=== PATIENT | male | born 2000 | race American Indian/Alaskan Native ===

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

== ENCOUNTER 2018-01-30 16:27 | Emergency (ER) | payer MEDICAID ==
[2018-01-30 17:12] VITALS: BP 127/75; PULSE 76; RESP 16; O2SAT 99
--- NOTE | 2018-01-30 17:31 | ED PDOC ---
Lower Extremity Pain/Injury Time Seen by Provider: 01/30/18 17:26 Chief Complaint (Nursing): Lower Extremity Problem/Injury Chief Complaint (Provider): leg pain History Per: Patient Additional Complaint(s): 17-year-old male presents with pain to left knee that started yesterday. Patient states it feels as if the bone is hurting. He is able to walk but has pain when doing so, no fever or chills. Past Medical History Reviewed: Historical Data, Nursing Documentation, Vital Signs Vital Signs: Last Vital Signs Temp 98.5 F 01/30/18 17:08 Pulse 76 01/30/18 17:08 Resp 16 01/30/18 17:08 BP 127/75 01/30/18 17:08 Pulse Ox 99 01/30/18 17:08 - Medical History PMH: Seizures (On Tegretol) Other PMH: Austism - Family History Family History: States: No Known Family Hx - Living Arrangements Living Arrangements: With Family - Social History Current smoker - smoking cessation education provided: No Alcohol: None Drugs: Denies - Home Medications Home Medications: Ambulatory Orders Medication Instructions Recorded carBAMazepine Susp [TEGretol] 100 mg PO BID 09/23/15 Docusate [Colace] 100 mg PO BID #14 cap 12/03/15 Psyllium Husk [Metamucil] 1 tsp PO DAILY #1 bottle 12/03/15 Polymyxin/Trimethoprim Sulfate 1 drop XX Q6H 10 Days bottle 11/27/17 [Polytrim Ophth Soln] Naproxen [Naprosyn] 500 mg PO BID PRN #10 tab 12/12/17 Ibuprofen [Motrin] 600 mg PO Q6 PRN #15 tab 01/30/18 - Allergies Allergies/Adverse Reactions: Allergies Allergy/AdvReac Type Severity Reaction Status Date / Time peanut Allergy unknown Verified 01/30/18 17:08 Wells Criteria for PE - Wells Criteria for Pulmonary Embolism Clinical Signs and Symptoms of DVT: No P.E is #1 Diagnosis, or Equally Likely: No Heart Rate >100: No Immobilization at least 3 days;Surgery previous 4 weeks: No Previous, objectively diagnosed PE or DVT: No Hemoptysis: No Malignancy w/treatment within 6 months, or palliative: No Total Score: 0 Review of Systems ROS Statement: Except As Marked, All Systems Reviewed And Found Negative Constitutional: Negative for: Fever Musculoskeletal: Positive for: Other (left knee pain) Physical Exam - Reviewed Nursing Documentation Reviewed: Yes Vital Signs Reviewed: Yes - Physical Exam Appears: Positive for: Well, Non-toxic, No Acute Distress Skin: Negative for: Rash Eye Exam: Positive for: Normal appearance Neck: Positive for: Normal Cardiovascular/Chest: Positive for: Regular Rate, Rhythm Respiratory: Positive for: Normal Breath Sounds Extremity: Positive for: Other (Tenderness and swelling medial aspect of left knee with full range of motion) Neurologic/Psych: Positive for: Alert, Oriented, Gait (steady) - ECG O2 Sat by Pulse Oximetry: 99 Pulse Ox Interpretation: Normal - Other Rad Left knee x-ray X-Ray: Interpreted by Me, Viewed By Me X-Ray Interpretation: no fx, no dis Medical Decision Making Medical Decision Makin17 y/o with left knee pain Plan: Pain meds declined X-ray left knee Patient is aware of x-ray results, all questions answered. Prescription given for Motrin. Brace for knee declined. Patient was referred to clinic for follow- up Disposition - Clinical Impression Clinical Impression: Knee pain - Patient ED Disposition Is Patient to be Admitted: No Counseled Patient/Family Regarding: Studies Performed, Diagnosis, Need For Followup, Rx Given - Disposition Referrals: [facility] [Outside] Disposition: Routine/Home Disposition Time: 18:23 Condition: STABLE Additional Instructions: Tick prescription meds as directed as needed for pain. Follow-up with primary doctor or clinic. Prescriptions: Ibuprofen [Motrin] 600 mg PO Q6 PRN #15 tab PRN Reason: Pain, Moderate (4-7) Instructions: Knee Pain (DC) Forms: [employer] (Croatian)
[2018-01-30 18:26] VITALS: TEMP 98.4
--- NOTE | 2018-01-31 08:40 | RAD ---
PROCEDURE: Left Knee Radiographs. HISTORY: Pain. COMPARISON: None. FINDINGS: BONES: No acute fracture. JOINTS: Unremarkable. JOINT EFFUSION: None. OTHER FINDINGS: None. IMPRESSION: No demonstrated fracture or dislocation.
== END 2018-01-30 18:25 | disposition home or self-care (01) ==
LOC: H.ER 16:27
DX: M25.562 Pain in left knee (principal)

== ENCOUNTER 2018-02-18 16:18 | Emergency (ER) | payer MEDICAID ==
[2018-02-18 16:30] VITALS: O2SAT 99
[2018-02-18 17:42] VITALS: BP 110/67; PULSE 87; RESP 17; TEMP 98.6
--- NOTE | 2018-02-18 17:42 | ED PDOC ---
HPI: Skin/Bite Injury Time Seen by Provider: 02/18/18 16:34 Chief Complaint (Nursing): Abnormal Skin Integrity Chief Complaint (Provider): skin boils History Per: Patient History/Exam Limitations: no limitations Onset/Duration Of Symptoms: Gradual Current Symptoms Are (Timing): Still Present Quality Of Symptoms: Painful Additional History Per: Patient, Family (mom) Additional Complaint(s): 17yo male hx seizures on medication, presents w mother c/o several hard lumps to skin- leg, groin and buttock, ongoing now about a week, no fever, no drainage , no prior skin abscesses. Past Medical History Reviewed: Historical Data, Nursing Documentation, Vital Signs Vital Signs: Last Vital Signs Temp 98.6 F 02/18/18 17:41 Pulse 87 02/18/18 17:41 Resp 17 02/18/18 17:41 BP 110/67 02/18/18 17:41 Pulse Ox 99 02/18/18 17:43 - Medical History PMH: Seizures (On Tegretol) - Family History Family History: States: Unknown Family Hx - Living Arrangements Living Arrangements: With Family - Social History Current smoker - smoking cessation education provided: No - Home Medications Home Medications: Ambulatory Orders Medication Instructions Recorded carBAMazepine Susp [TEGretol] 100 mg PO BID 09/23/15 Docusate [Colace] 100 mg PO BID #14 cap 12/03/15 Psyllium Husk [Metamucil] 1 tsp PO DAILY #1 bottle 12/03/15 Polymyxin/Trimethoprim Sulfate 1 drop XX Q6H 10 Days bottle 11/27/17 [Polytrim Ophth Soln] Naproxen [Naprosyn] 500 mg PO BID PRN #10 tab 12/12/17 Ibuprofen [Motrin] 600 mg PO Q6 PRN #15 tab 01/30/18 Chlorhexidine Gluconate 4% 120 ml TOP DAILY #1 bottle 02/18/18 [Hibiclens 4%] Clindamycin [Cleocin] 300 mg PO TID #21 cap 02/18/18 - Allergies Allergies/Adverse Reactions: Allergies Allergy/AdvReac Type Severity Reaction Status Date / Time peanut Allergy unknown Verified 02/18/18 16:26 Review of Systems Constitutional: Negative for: Fever, Chills, Malaise Cardiovascular: Negative for: Chest Pain Respiratory: Negative for: Shortness of Breath Gastrointestinal: Negative for: Abdominal Pain Genitourinary Male: Negative for: Dysuria Musculoskeletal: Negative for: Neck Pain Skin: Positive for: Lesions. Negative for: Rash, Jaundice, Bruising Neurological: Negative for: Confusion, Seizures, Headache Physical Exam - Reviewed Nursing Documentation Reviewed: Yes Vital Signs Reviewed: Yes - Physical Exam Appears: Positive for: Well, Non-toxic Head Exam: Positive for: ATRAUMATIC Skin: Positive for: Normal Color, Warm Eye Exam: Negative for: Periorbital swelling Neck: Positive for: Painless ROM Cardiovascular/Chest: Negative for: Tachycardia Respiratory: Negative for: Respiratory Distress Extremity: Positive for: Other (several nondraining faruncles to groin, buttock and R lower leg. Mild surrounding erythema. Neg vesicles. ) - ECG O2 Sat by Pulse Oximetry: 99 Medical Decision Making Medical Decision Making: initiate clinda and hibiclens soap Areas not mature enough to be incised/ drained. Return ER for any worse pain or swelling to areas, drainage, fever, or any concern. Disposition - Clinical Impression Clinical Impression: Furuncles - Patient ED Disposition Is Patient to be Admitted: No Counseled Patient/Family Regarding: Studies Performed, Diagnosis, Need For Followup, Rx Given - Disposition Referrals: Basil Lewis MD [Family Provider] - Disposition: Routine/Home Disposition Time: 17:30 Condition: STABLE Additional Instructions: Use medications as directed. Return to ER for any fevers, worse pain, draining wounds, or any concern. Use warm compress 3x daily to affected areas. Prescriptions: Chlorhexidine Gluconate 4% [Hibiclens 4%] 120 ml TOP DAILY #1 bottle Clindamycin [Cleocin] 300 mg PO TID #21 cap Instructions: Boil (DC) Forms: [employer] ([place])
== END 2018-02-18 17:40 | disposition home or self-care (01) ==
LOC: H.ER 16:18
DX: L02.92 Furuncle, unspecified (principal)

== ENCOUNTER 2018-04-25 17:05 | Emergency (ER) | payer MEDICAID ==
[2018-04-25 17:24] VITALS: RESP 18; O2SAT 100
[2018-04-25] MEDS ORDERED: Sodium Chloride 0.9% 1,000 ML IV STA (17:40)
--- NOTE | 2018-04-25 17:56 | ED PDOC ---
HPI: Chest Pain Time Seen by Provider: 04/25/18 17:24 Chief Complaint (Nursing): Palpitations Chief Complaint (Provider): Palpitations History Per: Patient History/Exam Limitations: no limitations Onset/Duration Of Symptoms: Days Current Symptoms Are (Timing): Still Present Additional Complaint(s): 17 y/o male with a PMHx of Autism and seizure disorder brought in by mother for evaluation of palpitations. Patient reported to mother at approximately 1 PM today while at rest that he feeling anxious, lightheaded and like his heart was racing. Mother told him to relax and calm down however symptoms persisted thus prompting today's visit. Denies chest pain, dyspnea, syncope and history of similar episodes. PMD: Basil Lewis Past Medical History Reviewed: Historical Data, Nursing Documentation, Vital Signs Vital Signs: Last Vital Signs Temp 98.9 F 04/25/18 17:22 Pulse 87 04/25/18 17:29 Resp 18 04/25/18 17:22 BP 152/82 H 04/25/18 17:22 Pulse Ox 100 04/25/18 18:00 - Medical History PMH: Seizures (On Tegretol) Other PMH: Autism - Surgical History Surgical History: No Surg Hx - Family History Family History: States: Unknown Family Hx - Home Medications Home Medications: Ambulatory Orders Medication Instructions Recorded carBAMazepine Susp [TEGretol] 100 mg PO BID 09/23/15 Docusate [Colace] 100 mg PO BID #14 cap 12/03/15 Psyllium Husk [Metamucil] 1 tsp PO DAILY #1 bottle 12/03/15 Polymyxin/Trimethoprim Sulfate 1 drop XX Q6H 10 Days bottle 11/27/17 [Polytrim Ophth Soln] Naproxen [Naprosyn] 500 mg PO BID PRN #10 tab 12/12/17 Ibuprofen [Motrin] 600 mg PO Q6 PRN #15 tab 01/30/18 Chlorhexidine Gluconate 4% 120 ml TOP DAILY #1 bottle 02/18/18 [Hibiclens 4%] Clindamycin [Cleocin] 300 mg PO TID #21 cap 02/18/18 - Allergies Allergies/Adverse Reactions: Allergies Allergy/AdvReac Type Severity Reaction Status Date / Time peanut Allergy unknown Verified 04/25/18 17:21 Review of Systems ROS Statement: Except As Marked, All Systems Reviewed And Found Negative (as per HPI) Cardiovascular: Positive for: Palpitations. Negative for: Chest Pain Respiratory: Negative for: Other (Dyspnea) Neurological: Positive for: Other (Lightheadedness) Psych: Positive for: Anxiety Physical Exam - Reviewed Nursing Documentation Reviewed: Yes Vital Signs Reviewed: Yes - Physical Exam Appears: Positive for: Non-toxic, No Acute Distress Head Exam: Positive for: ATRAUMATIC, NORMOCEPHALIC Skin: Positive for: Warm, Dry Eye Exam: Positive for: EOMI, PERRL ENT: Negative for: Pharyngeal Erythema, Tonsillar Exudate Neck: Positive for: Painless ROM, Supple Cardiovascular/Chest: Positive for: Regular Rate, Rhythm, Chest Non Tender. Negative for: Murmur Respiratory: Positive for: Normal Breath Sounds Gastrointestinal/Abdominal: Positive for: Soft. Negative for: Tenderness Back: Positive for: Normal Inspection. Negative for: Decreased ROM Extremity: Positive for: Normal ROM. Negative for: Deformity Lymphatic: Negative for: Adenopathy Neurologic/Psych: Positive for: Alert, Mood/Affect (mildly anxious affect). Negative for: Motor/Sensory Deficits - Laboratory Results Result Diagrams: 04/25/18 17:58 04/25/18 17:58 - ECG ECG: Positive for: Interpreted By Fl ECG Rhythm: Positive for: Normal QRS, Normal ST Segment, Sinus Rhythm (70) O2 Sat by Pulse Oximetry: 100 (RA) Pulse Ox Interpretation: Normal - Radiology X-Ray: Interpreted by Fl X-Ray Interpretation: No Acute Disease Medical Decision Making Medical Decision Making: Time: 174 Impression: palpitations Differentials include but not limited to electrolyte abnormality, dehydration, drug intoxication and anxiety Plan: -- EKG -- CMP -- Urine Drug Screen -- Magnesium -- Phosphorus -- Thyroid Stimulating Hormone -- ED Urine Dipstick -- CBC with differentials -- Sodium Chloride IV 1000 mls/hr -- Decker Operator -- IV Insertion Labs unremarkable Pt continues to be asymptomatic in ER. Scribe Attestation: Documented by Edi Mccormack acting as a scribe for Priti Ramírez MD. Provider Scribe Attestation: All medical record entries made by the Scribe were at my direction and personally dictated by me. I have reviewed the chart and agree that the record accurately reflects my personal performance of the history, physical exam, medical decision making, and the department course for this patient. I have also personally directed, reviewed, and agree with the discharge instructions and disposition. Disposition - Clinical Impression Clinical Impression: Palpitations Counseled Patient/Family Regarding: Studies Performed, Diagnosis, Need For Followup - Disposition Referrals: Fito Francois MD [Staff Provider] - Disposition: Routine/Home Disposition Time: 19:30 Condition: STABLE Instructions: Palpitations (DC)
[2018-04-25 18:15] LABS: BASO % 0.3 % (0.0-2.0); EOS # 0.4 K/uL (0.0-0.7); EOS % 8.5 % (0.0-4.0); LYMPH # 2.2 K/uL (1.0-4.3); LYMPH % 47.1 % (20.0-40.0); MEAN CELL VOLUME 95.9 fl (80.0-94.0); MEAN CORPUSCULAR HEMOGLOBIN 33.1 pg (27.0-31.0); MEAN CORPUSCULAR HGB CONC 34.5 g/dL (33.0-37.0); MEAN PLATELET VOLUME 10.9 fl (7.2-11.7); MONO # 0.5 K/uL (0.0-0.8); MONO % 10.9 % (0.0-10.0); NEUT # 1.5 K/uL (1.8-7.0); NEUT % 33.2 % (50.0-75.0); NRBC % 0.2 % (0.0-0.0); RBC 4.83 Mil/uL (4.40-5.90); RED CELL DISTRIBUTION WIDTH 14.2 % (11.5-14.5); WHITE BLOOD COUNT 4.6 K/uL (4.8-10.8)
[2018-04-25 18:22] LABS: ALB/GLOB RATIO 1.4 (1.0-2.1); ALBUMIN 4.6 g/dL (3.5-5.0); ALT/SGPT 33 U/L (21-72); AST/SGOT 26 U/L (17-59); BLOOD UREA NITROGEN 11 mg/dl (9-20); CALCIUM 9.4 mg/dL (8.4-10.2); GFR NON-AFRICAN AMERICAN > 60
[2018-04-25 18:35] LABS: BARBITURATES, UR NEGATIVE (NEGATIVE); BENZODIAZEPINES, UR NEGATIVE (NEGATIVE); OPIATES, UR NEGATIVE (NEGATIVE); PHENCYCLIDINE, UR NEGATIVE (NEGATIVE)
[2018-04-25 19:36] VITALS: BP 126/68; PULSE 75; TEMP 97.7
--- NOTE | 2018-04-26 09:49 | RAD ---
Date of service: 04/25/2018 HISTORY: chest pain COMPARISON: 05/06/2017 TECHNIQUE: Chest PA and lateral FINDINGS: LUNGS: No active pulmonary disease. PLEURA: No significant pleural effusion identified. No pneumothorax apparent. CARDIOVASCULAR: Normal. OSSEOUS STRUCTURES: No significant abnormalities. VISUALIZED UPPER ABDOMEN: Normal. OTHER FINDINGS: None. IMPRESSION: No active disease.
--- NOTE | 2018-04-26 10:00 | CARD ---
APPROVED REPORT Date of service: 04/25/2018 EKG Measurement Heart [id number] <Conclusion> Normal sinus rhythm Normal ECG
== END 2018-04-25 19:50 | disposition home or self-care (01) ==
LOC: H.ER 17:05
DX: R00.2 Palpitations (principal); F84.0 Autistic disorder; G40.909 Epilepsy, unspecified, not intractable, without status epilepticus
CPT/HCPCS: 71046; 80053; 80324; 80345; 80346; 80349; 80353; 80358; 80361; 83735; 83992; 84100; 84443; 85025; 93005; 96360; 99284; J7030

== ENCOUNTER 2018-04-26 19:39 | Emergency (ER) | payer MEDICAID ==
[2018-04-26 20:05] VITALS: BP 129/77; PULSE 80; RESP 16; TEMP 99.3; O2SAT 100
--- NOTE | 2018-04-26 20:57 | ED PDOC ---
Lower Extremity Pain/Injury Time Seen by Provider: 04/26/18 20:05 Chief Complaint (Nursing): Lower Extremity Problem/Injury Chief Complaint (Provider): Lower Extremity Problem/Injury History Per: Patient History/Exam Limitations: no limitations Onset/Duration Of Symptoms: Hrs (earlier today) Current Symptoms Are (Timing): Still Present Additional Complaint(s): 17 year old male presents to the ED for evaluation of leg pain. Patient states that earlier today, he fell and hit his left leg on an unknown object. Otherwise , denies numbness, tingling, head injury, and other injury. PMD: Basil Lewis Past Medical History Reviewed: Historical Data, Nursing Documentation, Vital Signs Vital Signs: Last Vital Signs Temp 99.3 F 04/26/18 20:01 Pulse 80 04/26/18 20:01 Resp 16 04/26/18 20:01 BP 129/77 04/26/18 20:01 Pulse Ox 100 04/26/18 20:01 - Medical History PMH: Seizures (On Tegretol) - Surgical History Surgical History: No Surg Hx - Family History Family History: States: Unknown Family Hx - Living Arrangements Living Arrangements: With Family - Social History Current smoker - smoking cessation education provided: No Alcohol: None Drugs: Denies - Home Medications Home Medications: Ambulatory Orders Medication Instructions Recorded carBAMazepine Susp [TEGretol] 100 mg PO BID 09/23/15 Docusate [Colace] 100 mg PO BID #14 cap 12/03/15 Psyllium Husk [Metamucil] 1 tsp PO DAILY #1 bottle 12/03/15 Polymyxin/Trimethoprim Sulfate 1 drop XX Q6H 10 Days bottle 11/27/17 [Polytrim Ophth Soln] Naproxen [Naprosyn] 500 mg PO BID PRN #10 tab 12/12/17 Ibuprofen [Motrin] 600 mg PO Q6 PRN #15 tab 01/30/18 Chlorhexidine Gluconate 4% 120 ml TOP DAILY #1 bottle 02/18/18 [Hibiclens 4%] Clindamycin [Cleocin] 300 mg PO TID #21 cap 02/18/18 - Allergies Allergies/Adverse Reactions: Allergies Allergy/AdvReac Type Severity Reaction Status Date / Time peanut Allergy unknown Verified 04/26/18 20:05 Review of Systems ROS Statement: Except As Marked, All Systems Reviewed And Found Negative Musculoskeletal: Positive for: Leg Pain (left) Neurological: Negative for: Numbness (or tingling) Physical Exam - Reviewed Nursing Documentation Reviewed: Yes Vital Signs Reviewed: Yes - Physical Exam Appears: Positive for: No Acute Distress Pulses-Dorsalis Pedis (L): 2+ Pulses-Dorsalis Pedis (R): 2+ Extremity: Positive for: Normal ROM (bilateral legs), Capillary Refill (less than 2 seconds). Negative for: Tenderness (bilat LE and bilat knee), Calf Tenderness (bilateral), Deformity, Swelling (bilat LE), Other (skin changes or ecchymosis in bilat LE) Neurologic/Psych: Positive for: Alert, Oriented (x3), Gait (steady and unassisted) - ECG O2 Sat by Pulse Oximetry: 100 Medical Decision Making Medical Decision Making: Time: 2024 Initial Impression: leg contusion Initial Plan: --No emergent care is required at this time. Patient requested mother be called to inform her of plan. Mother was called and agrees with care. Patient advised to ice 20 minutes on and 20 minutes off. Scribe Attestation: Documented by Dasia De La Paz, acting as a scribe for Angel Mcdaniels PA-C. Provider Scribe Attestation: All medical record entries made by the Scribe were at my direction and personally dictated by me. I have reviewed the chart and agree that the record accurately reflects my personal performance of the history, physical exam, medical decision making, and the department course for this patient. I have also personally directed, reviewed, and agree with the discharge instructions and disposition. Disposition - Clinical Impression Clinical Impression: Contusion of leg - Disposition Referrals: [facility] Service [Outside] Disposition Time: 20:30 Condition: STABLE Additional Instructions: STELLA CRONIN, thank you for letting us take care of you today. Your provider was Priti Ramírez MD and you were treated for LT KNEE PAIN. The emergency medical care you received today was directed at your acute symptoms. If you were prescribed any medication, please fill it and take as directed. It may take several days for your symptoms to resolve. Return to the Emergency Department if your symptoms worsen, do not improve, or if you have any other problems. Please contact your doctor or call one of the physicians/clinics you have been referred to that are listed on the Patient Visit Information form that is included in your discharge packet. Bring any paperwork you were given at discharge with you along with any medications you are taking to your follow up visit. Our treatment cannot replace ongoing medical care by a primary care provider outside of the emergency department. Thank you for allowing the [facility] team to be part of your care today. If you had an X-Ray or CT scan: A Radiologist will review the ED reading if any change in treatment is needed we will contact you. If you had a blood, urine, or wound culture: It will take several days for the results, if any change in treatment is needed we will contact you. If you had an STI test: It will take 48 hours for the results. Please call after 1 week if you have not heard back. Instructions: Contusion (DC) Forms: [employer] (Czech) Print Language: JORDANIAN
== END 2018-04-26 21:13 | disposition home or self-care (01) ==
LOC: H.ER 19:39
DX: S80.12XA Contusion of left lower leg, initial encounter (principal); W19.XXXA Unspecified fall, initial encounter; Y92.89 Other specified places as the place of occurrence of the external cause

== ENCOUNTER 2018-07-13 16:55 | Emergency (ER) | payer MEDICAID ==
[2018-07-13 17:24] VITALS: TEMP 98.2; O2SAT 100
--- NOTE | 2018-07-13 18:49 | RAD ---
Date of service: 07/13/2018 PROCEDURE: Left Knee Radiographs. HISTORY: Pain. COMPARISON: None. FINDINGS: BONES: Bone alignment and mineralization are normal. There is no acute displaced fracture or bone destruction. JOINTS: Normal. No osteoarthritis. JOINT EFFUSION: None. OTHER FINDINGS: None. IMPRESSION: No acute fracture or dislocation.
--- NOTE | 2018-07-13 19:01 | ED PDOC ---
Lower Extremity Pain/Injury Time Seen by Provider: 07/13/18 17:44 Chief Complaint (Nursing): Lower Extremity Problem/Injury Chief Complaint (Provider): Lower Extremity Problem/Injury History Per: Patient History/Exam Limitations: no limitations Onset/Duration Of Symptoms: Days (x2 days ) Current Symptoms Are (Timing): Still Present Additional Complaint(s): Ac Duenas is a 18 year old male with a past medical history of seizure disorder and autism, who presents to the emergency department complaining of left knee pain, onset x2 days ago. He states that he began having medial left knee pain and noticed it while walking; pain is described as intermittent that is worsened when walking or jumping. Patient states he has not taken any medications to alleviate pain. He denies any hip, ankle pain, fever, chills, trauma to the area, asthma, HTN, or diabetes. PMD: Basil Lewis Past Medical History Reviewed: Historical Data, Nursing Documentation, Vital Signs Vital Signs: Last Vital Signs Temp 98.2 F 07/13/18 17:20 Pulse 80 07/13/18 17:20 Resp 16 07/13/18 17:20 BP 123/82 07/13/18 17:20 Pulse Ox 100 07/13/18 17:20 - Medical History PMH: Seizures (On Tegretol) Other PMH: autism - Surgical History Surgical History: No Surg Hx - Family History Family History: States: Unknown Family Hx - Home Medications Home Medications: Ambulatory Orders Medication Instructions Recorded carBAMazepine Susp [TEGretol] 100 mg PO BID 09/23/15 Ibuprofen [Motrin Tab] 600 mg PO Q6 PRN 5 Days tab 07/13/18 - Allergies Allergies/Adverse Reactions: Allergies Allergy/AdvReac Type Severity Reaction Status Date / Time peanut Allergy unknown Verified 07/13/18 17:20 Review of Systems ROS Statement: Except As Marked, All Systems Reviewed And Found Negative Musculoskeletal: Positive for: Leg Pain (knee pain). Negative for: Other (hip or ankle pain) Physical Exam - Reviewed Nursing Documentation Reviewed: Yes Vital Signs Reviewed: Yes - Physical Exam Appears: Positive for: No Acute Distress Head Exam: Positive for: ATRAUMATIC, NORMOCEPHALIC Cardiovascular/Chest: Positive for: Regular Rate, Rhythm. Negative for: Murmur Respiratory: Positive for: Normal Breath Sounds. Negative for: Respiratory Distress Extremity: Positive for: Normal ROM (normal flexion and extension of left hip and ankle), Tenderness (mild pain on palpation on medial left knee), Other (Left knee: no edema, erthyema noted ) Neurologic/Psych: Positive for: Other (sensation intact bilaterlly of lower extremities ) - ECG O2 Sat by Pulse Oximetry: 100 (RA) Pulse Ox Interpretation: Normal Medical Decision Making Medical Decision Making: Initial Time: 18:14 Plan: --Left knee x-ray --Ibuprofen 600 mg PO x1 Time: 18:43 X-ray FINDINGS: BONES: Bone alignment and mineralization are normal. There is no acute displaced fracture or bone destruction. JOINTS: Normal. No osteoarthritis. JOINT EFFUSION: None. OTHER FINDINGS: None. IMPRESSION: No acute fracture or dislocation. Scribe Attestation: Documented by Colton Lu, acting as a scribe for Angeles Parker PA-C. Provider Scribe Attestation: All medical record entries made by the Scribe were at my direction and personally dictated by me. I have reviewed the chart and agree that the record accurately reflects my personal performance of the history, physical exam, medical decision making, and the department course for this patient. I have also personally directed, reviewed, and agree with the discharge instructions and disposition. Disposition - Clinical Impression Clinical Impression: Knee pain - Disposition Referrals: Basil Lewis MD [Family Provider] - Disposition Time: 18:50 Condition: STABLE Additional Instructions: Use Ibuprofen for knee pain. Return to ER or f/u with your primary care doctor if pain worsens or you develop a fever. Prescriptions: Ibuprofen [Motrin Tab] 600 mg PO Q6 PRN 5 Days tab PRN Reason: Pain, Moderate (4-7) Instructions: Knee Pain (DC) Forms: [employer] (Macedonian) Print Language: SCOTTISH
[2018-07-13 19:23] VITALS: BP 124/78; PULSE 76; RESP 18
== END 2018-07-13 19:53 | disposition home or self-care (01) ==
LOC: H.ER 16:55
DX: M25.562 Pain in left knee (principal)

== ENCOUNTER 2018-07-25 15:34 | Emergency (ER) | payer MEDICAID ==
[2018-07-25 15:44] VITALS: O2SAT 100
[2018-07-25 17:31] LABS: BLOOD UREA NITROGEN 9 mg/dl (9-20); CALCIUM 9.2 mg/dL (8.4-10.2); GFR NON-AFRICAN AMERICAN > 60
[2018-07-25 17:32] LABS: BASO % 0.6 % (0.0-2.0); EOS # 0.6 K/uL (0.0-0.7); HEMOGLOBIN 15.7 g/dL (12.0-18.0); LYMPH % 35.2 % (20.0-40.0); MEAN CELL VOLUME 97.2 fl (80.0-94.0); MEAN CORPUSCULAR HEMOGLOBIN 32.7 pg (27.0-31.0); MEAN CORPUSCULAR HGB CONC 33.6 g/dL (33.0-37.0); MEAN PLATELET VOLUME 11.4 fl (7.2-11.7); MONO # 0.7 K/uL (0.0-0.8); NEUT # 2.4 K/uL (1.8-7.0); NEUT % 41.2 % (50.0-75.0); NRBC % 0.2 % (0.0-0.0); RBC 4.8 Mil/uL (4.40-5.90); RED CELL DISTRIBUTION WIDTH 13.9 % (11.5-14.5); WHITE BLOOD COUNT 5.8 K/uL (4.8-10.8)
--- NOTE | 2018-07-25 18:06 | ED PDOC ---
HPI: Chest Pain Time Seen by Provider: 07/25/18 16:14 Chief Complaint (Nursing): Anxiety Chief Complaint (Provider): Anxiety History Per: Patient, Family (Mother) History/Exam Limitations: no limitations Additional Complaint(s): 18 years old male with learning disabilities and pmhx of seizures presents to ER with mother for evaluation of chest pain. Patient thinks he has a disease and dying now. Mother reports patient reads a lot of medical information online, which is why he has frequent visits to the ER. Patient thinks he needs a CT of abdomen. He denies any fever, shortness of breath, cough, nausea, vomiting, diarrhea or abdominal pain. PMD: Basil Lewis Past Medical History Reviewed: Historical Data, Nursing Documentation, Vital Signs Vital Signs: Last Vital Signs Temp 98.7 F 07/25/18 15:43 Pulse 82 07/25/18 15:43 Resp 18 07/25/18 15:43 BP 126/76 07/25/18 15:43 Pulse Ox 100 07/25/18 15:43 - Medical History PMH: Seizures (On Tegretol) Denies: Chronic Kidney Disease - Surgical History Surgical History: No Surg Hx - Family History Family History: States: Unknown Family Hx - Social History Current smoker - smoking cessation education provided: No Alcohol: None Drugs: Denies - Home Medications Home Medications: Ambulatory Orders Medication Instructions Recorded carBAMazepine Susp [TEGretol] 100 mg PO BID 09/23/15 RX: Ibuprofen [Motrin Tab] 600 mg PO Q6 PRN 5 Days tab 07/13/18 Benzonatate [Tessalon Perles] 1 tab PO TID #30 sgl 07/17/18 - Allergies Allergies/Adverse Reactions: Allergies Allergy/AdvReac Type Severity Reaction Status Date / Time peanut Allergy unknown Verified 07/17/18 16:33 Review of Systems ROS Statement: Except As Marked, All Systems Reviewed And Found Negative Constitutional: Negative for: Fever Cardiovascular: Positive for: Chest Pain Gastrointestinal: Negative for: Nausea, Vomiting, Abdominal Pain, Diarrhea Physical Exam - Reviewed Nursing Documentation Reviewed: Yes Vital Signs Reviewed: Yes - Physical Exam Appears: Positive for: Non-toxic, No Acute Distress (calm and cooperative) Head Exam: Positive for: ATRAUMATIC, NORMOCEPHALIC Skin: Positive for: Rash (eczematous on left neck and hands bilaterally) Cardiovascular/Chest: Positive for: Regular Rate, Rhythm. Negative for: Murmur Respiratory: Positive for: Normal Breath Sounds. Negative for: Wheezing Gastrointestinal/Abdominal: Positive for: Normal Exam, Soft. Negative for: Tenderness Extremity: Positive for: Normal ROM. Negative for: Pedal Edema (or pain), Calf Tenderness Neurologic/Psych: Positive for: Alert, Oriented (x3) - Laboratory Results Result Diagrams: 07/25/18 17:08 07/25/18 17:08 - ECG O2 Sat by Pulse Oximetry: 100 (RA) Pulse Ox Interpretation: Normal Medical Decision Making Medical Decision Making: Time: 1629 A/P: General workup for chest pain. --Had lengthy discussion with patient and mother of the indication of CT --Everyone in agreement that CT is not necessary at this time --Will obtain chest x-ray --Labs --Reassessment 182 Labs and CXR unremarkable. Pt now asymptomatic. Pt to follow up with his PMD as needed. Return parameters discussed. Scribe Attestation: Documented by Merry Lamas, acting as a scribe for Elise Hollingsworth MD. Provider Scribe Attestation: All medical record entries made by the Scribe were at my direction and personally dictated by me. I have reviewed the chart and agree that the record accurately reflects my personal performance of the history, physical exam, medical decision making, and the department course for this patient. I have also personally directed, reviewed, and agree with the discharge instructions and disposition. Disposition - Clinical Impression Clinical Impression: Anxiety, Non-cardiac chest pain - Disposition Disposition: Routine/Home Disposition Time: 18:20 Condition: IMPROVED Additional Instructions: Follow up with primary medical doctor. Instructions: Chest Pain That Is Not Caused by the Heart (DC), Anxiety, Adult (DC) Forms: [employer] (Hungarian) Print Language: THAI
[2018-07-25 19:08] VITALS: BP 126/67; PULSE 81; RESP 16; TEMP 98.4
--- NOTE | 2018-07-26 10:42 | RAD ---
Date of service: 07/25/2018 HISTORY: Chest pain COMPARISON: 04/25/2018 TECHNIQUE: Chest PA and lateral FINDINGS: LUNGS: No active pulmonary disease. PLEURA: No significant pleural effusion identified. No pneumothorax apparent. CARDIOVASCULAR: No aortic atherosclerotic calcification present. Normal cardiac size. No pulmonary vascular congestion. OSSEOUS STRUCTURES: No significant abnormalities. VISUALIZED UPPER ABDOMEN: Normal. OTHER FINDINGS: None. IMPRESSION: No active disease. No significant interval change compared to the prior examination(s).
== END 2018-07-25 19:00 | disposition home or self-care (01) ==
LOC: H.ER 15:34
DX: R07.89 Other chest pain (principal); F41.9 Anxiety disorder, unspecified; G40.909 Epilepsy, unspecified, not intractable, without status epilepticus

== ENCOUNTER 2018-12-21 15:19 | Inpatient (IN) | payer MEDICAID ==
[2018-12-21] MEDS ORDERED: Piperacillin/Tazobact 3.375 GM in Sodium Chloride 0.9% 100 ML IVPB STA (16:01)
--- NOTE | 2018-12-21 16:18 | ED PDOC ---
HPI: Skin/Bite Injury Time Seen by Provider: 12/21/18 15:35 Chief Complaint (Nursing): Abnormal Skin Integrity Chief Complaint (Provider): infectin LEFT forearm/elbow History Per: Patient, Family History/Exam Limitations: clinical condition (cognitive delay, timing of illness may be unreliable) Onset/Duration Of Symptoms: Days (2) Current Symptoms Are (Timing): Still Present Quality Of Symptoms: Painful, Swollen, Draining Additional Complaint(s): swelling to forearm for 2 days (mother reports could have been longer and patient may have been hiding it) painful and worsening associated with discharge from elbow crease today, constant and slow denies fever, trauma, skin lesion (but has eczema), numbness or tingling, or shoulder/hand pain PMD Dr Francois Past Medical History Reviewed: Historical Data, Nursing Documentation, Vital Signs Vital Signs: Last Vital Signs Temp 97.6 F 12/21/18 15:29 Pulse 95 H 12/21/18 15:29 Resp 16 12/21/18 15:29 BP 139/78 12/21/18 15:29 Pulse Ox 100 12/21/18 15:29 Primary Care Provider: Basil Lewis - Medical History PMH: Seizures (On Tegretol) Denies: Chronic Kidney Disease Other PMH: cognitive delay - Family History Family History: States: Unknown Family Hx - Social History Current smoker - smoking cessation education provided: No Drugs: Denies - Home Medications Home Medications: Ambulatory Orders Medication Instructions Recorded Carbamazepine 100 mg PO DAILY 12/21/18 Docusate [Colace] 100 mg PO DAILY 12/21/18 Loratadine [Claritin] 10 mg PO DAILY 12/21/18 - Allergies Allergies/Adverse Reactions: Allergies Allergy/AdvReac Type Severity Reaction Status Date / Time peanut Allergy unknown Verified 12/21/18 15:28 Review of Systems ROS Statement: Except As Marked, All Systems Reviewed And Found Negative (and as per HPI) Musculoskeletal: Positive for: Arm Pain Skin: Positive for: Lesions Physical Exam - Reviewed Nursing Documentation Reviewed: Yes Vital Signs Reviewed: Yes - Physical Exam Appears: Positive for: In Acute Distress (painful) Skin: Positive for: Warm, Dry (eczematous rashes to arms andlegs) Eye Exam: Positive for: EOMI, PERRL ENT: Positive for: Pharynx Is (clear) Neck: Positive for: Painless ROM, Supple Cardiovascular/Chest: Positive for: Regular Rate, Rhythm. Negative for: Murmur Respiratory: Positive for: Normal Breath Sounds. Negative for: Respiratory Distress Gastrointestinal/Abdominal: Positive for: Soft. Negative for: Tenderness Back: Positive for: Normal Inspection. Negative for: Decreased ROM Extremity: Positive for: Other (RIGHT upper extremity: large 6cm fluctuant swelling to anterior proximal forearm ~3cm distal to elbow crease tender and erythematous, pinpoint lesion in medial elbow crease with yellow thick discharge, also tender. Scaly erythema to bilateral elbows and forearms c/w ecze ma) Lymphatic: Negative for: Axilla Node Tenderness Neurological/Psych: Positive for: Awake, Alert. Negative for: Motor/Sensory Deficits - Laboratory Results Result Diagrams: 12/22/18 10:30 12/21/18 16:12 - ECG O2 Sat by Pulse Oximetry: 100 - Physician Consult Information Physician Contacted: Martell Cox Outcome Of Conversation: Requests MRI of elbow. Agrees with plan for admission for IV antibiotics Medical Decision Making Medical Decision Makin Case discussed with Dr. Herrera, who accepts patient for admission MRI Right upper extremity ordered Disposition - Clinical Impression Clinical Impression: Cellulitis and abscess of upper arm and forearm Counseled Patient/Family Regarding: Studies Performed, Diagnosis - Disposition Disposition Time: 16:00 Condition: SERIOUS - Pt Status Changed To: Hospital Disposition Of: Inpatient - Admit Certification Admit to Inpatient:: After my assessment, the patient will require hospitalization for at least two midnights. This is because of the severity of symptoms shown, intensity of services needed, and/or the medical risk in this patient being treated as an outpatient. - POA Present On Arrival: None
[2018-12-21 16:38] LABS: BLOOD UREA NITROGEN 13 mg/dl (9-20); CALCIUM 9.3 mg/dL (8.4-10.2); GFR NON-AFRICAN AMERICAN > 60
[2018-12-21] MEDS ORDERED: Piperacillin/Tazobact 3.375 gm Inj IVPB ONE (16:46)
--- NOTE | 2018-12-21 16:49 | RAD ---
Date of service: 12/21/2018 PROCEDURE: Radiographs of the right elbow. HISTORY: RIGHT elbow infection COMPARISON: No prior. TECHNIQUE: 3 views obtained. FINDINGS: BONES: Normal. No fracture. JOINTS: Normal. No osteoarthritis. SOFT TISSUES: Soft tissue swelling at the level of the elbow joint and extending into the proximal forearm. The finding is marked on the study for review. JOINT EFFUSION: None. OTHER FINDINGS: None. IMPRESSION: Soft tissue swelling without acute articular or osseous abnormality.
[2018-12-21 17:07] LABS: BASO % 0.3 % (0.0-2.0); EOS # 0.3 K/uL (0.0-0.7); EOS % 2.2 % (0.0-4.0); HEMOGLOBIN 13.6 g/dL (12.0-18.0); LYMPH # 2.5 K/uL (1.0-4.3); LYMPH % 15.7 % (20.0-40.0); MEAN CELL VOLUME 95.8 fl (80.0-94.0); MEAN CORPUSCULAR HEMOGLOBIN 31.6 pg (27.0-31.0); MEAN PLATELET VOLUME 10.7 fl (7.2-11.7); MONO # 1.7 K/uL (0.0-0.8); NEUT # 11.1 K/uL (1.8-7.0); NEUT % 70.8 % (50.0-75.0); RBC 4.31 Mil/uL (4.40-5.90); RED CELL DISTRIBUTION WIDTH 13.5 % (11.5-14.5); WHITE BLOOD COUNT 15.7 K/uL (4.8-10.8)
[2018-12-21 17:09] LABS: ALB/GLOB RATIO 1.1 (1.0-2.1); ALBUMIN 4.7 g/dL (3.5-5.0); ALT/SGPT 13 U/L (21-72); AST/SGOT 32 U/L (17-59)
--- NOTE | 2018-12-21 19:00 | CP.PCM.CON ---
History of Present Illness - History of Present Illness History of Present Illness: Orthopedic hand consult: Dr. Cox Patient is a 18 y/o RHD male c/o forearm pain for the last 3 days. Mother at bedside. Patient reports falling while playing in a park. He does not recall any wounds or foreign body penetration to the forearm at the time of injury. Over the next few days, he developed severe forearm pain and swelling. Yesterday, he noticed white discharge from the area of swelling. The pain was severe, dull and intermittent, but controlled at this time. He denies any fevers/radiation of pain/numbness/tingling. He also denies CP/SOB/N/V/D/dysuria/melena. PMH: Seizures, eczema PSH: denies meds: Tegretol allergy: seasonal SH: denies tobacco/ETOH/drug use Review of Systems - Review of Systems All systems: reviewed and no additional remarkable complaints except Review of Systems: as per HPI Past Patient History - Past Medical History & Family History Past Family History: Reviewed and not pertinent - Past Social History Drugs: Denies - CARDIAC Hx Cardiac Disorders: No - PULMONARY Hx Respiratory Disorders: No - NEUROLOGICAL Hx Seizures: Yes (On Tegretol) - HEENT Hx HEENT Problems: No - RENAL Hx Chronic Kidney Disease: No - ENDOCRINE/METABOLIC Hx Endocrine Disorders: No - HEMATOLOGICAL/ONCOLOGICAL Hx Blood Disorders: No - INTEGUMENTARY Hx Dermatological Problems: No Hx Eczema: Yes - MUSCULOSKELETAL/RHEUMATOLOGICAL Hx Musculoskeletal Disorders: No - GASTROINTESTINAL Hx Gastrointestinal Disorders: No - GENITOURINARY/GYNECOLOGICAL Hx Genitourinary Disorders: No - PSYCHIATRIC Hx Psychophysiologic Disorder: No Hx Substance Use: No - SURGICAL HISTORY Hx Surgeries: No - ANESTHESIA Hx Anesthesia: No Hx Anesthesia Reactions: No Hx Malignant Hyperthermia: No Meds Allergies/Adverse Reactions: Allergies Allergy/AdvReac Type Severity Reaction Status Date / Time peanut Allergy unknown Verified 12/21/18 15:28 Physical Exam - Constitutional Appears: Well, Younger Than Stated Age - Head Exam Head Exam: ATRAUMATIC, NORMOCEPHALIC - Eye Exam Eye Exam: EOMI, Normal appearance - ENT Exam ENT Exam: Mucous Membranes Moist - Respiratory Exam Respiratory Exam: NORMAL BREATHING PATTERN - Extremities Exam Additional comments: RUE: large fluctuant mass at the antecubital elbow extending to proximal forearm small punctate lesion with white discharge moderate eugene-mass tenderness sensation intact MN/UN/RN motor intact MN/UN/RN radial pulse intact Results - Vital Signs Recent Vital Signs: Last Vital Signs Temp 97.6 F 12/21/18 15:29 Pulse 95 H 12/21/18 15:29 Resp 16 12/21/18 15:29 BP 139/78 12/21/18 15:29 Pulse Ox 100 12/21/18 16:44 - Labs Result Diagrams: 12/21/18 16:42 12/21/18 16:12 Labs: Laboratory Results - last 24 hr 12/21/18 12/21/18 12/21/18 16:12 16:12 16:42 WBC 15.7 H D RBC 4.31 L Hgb 13.6 D Hct 41.3 MCV 95.8 H MCH 31.6 H MCHC 33.0 RDW 13.5 Plt Count 235 MPV 10.7 Neut % (Auto) 70.8 Lymph % (Auto) 15.7 L Castro % (Auto) 11.0 H Eos % (Auto) 2.2 Baso % (Auto) 0.3 Neut # (Auto) 11.1 H Lymph # (Auto) 2.5 Castro # (Auto) 1.7 H Eos # (Auto) 0.3 Baso # (Auto) 0.0 Sodium 139 Potassium 3.9 Chloride 100 Carbon Dioxide 23 Anion Gap 20 BUN 13 Creatinine 0.7 L Est GFR ( Amer) > 60 Est GFR (Non-Af Amer) > 60 Random Glucose 95 Lactic Acid 2.9 H Calcium 9.3 Total Bilirubin 0.8 AST 32 ALT 13 L D Alkaline Phosphatase 70 Total Protein 8.9 H Albumin 4.7 Globulin 4.2 H Albumin/Globulin Ratio 1.1 - Impressions Impression: Accession No. : [id number] Patient Name / ID : MEHRDAD DOUGLAS / [id number] Exam Date : 12/21/2018 16:06:28 ( Approved ) Study Comment : Sex / Age : M / 18 Creator : Justice Masterson MD Dictator : Justice Masterson MD [employer] Basic : [employer] Teacher : Justice Masterson MD Approver2 : Report Date : 12/21/2018 16:46:35 My Comment : Date of service: 12/21/2018 PROCEDURE: Radiographs of the right elbow. HISTORY: RIGHT elbow infection COMPARISON: No prior. TECHNIQUE: 3 views obtained. FINDINGS: BONES: Normal. No fracture. JOINTS: Normal. No osteoarthritis. SOFT TISSUES: Soft tissue swelling at the level of the elbow joint and extending into the proximal forearm. The finding is marked on the study for review. JOINT EFFUSION: None. OTHER FINDINGS: None. IMPRESSION: Soft tissue swelling without acute articular or osseous abnormality. Assessment & Plan (1) Abscess of forearm, right Assessment and Plan: Reviewed patient's history, exam and imaging with Dr. Cox who recommends R forearm I&D for AM ID consult for IV abx warm compress BID MRI results to follow pain control will follow Status: Acute - Date & Time Date: 12/21/18 Time: 19:06
[2018-12-21] MEDS ORDERED: Oxycodone/Acetaminophen 5/325 mg Tab PO PRN (19:09)
[2018-12-21] MEDS ORDERED: Vancomycin 1 g Inj ONE (19:44)
[2018-12-21 20:37] LABS: INR 1.1; PROTHROMBIN TIME 12.6 Seconds (9.8-13.1)
[2018-12-21 20:40] LABS: PARTIAL THROMBOPLASTIN TIME 37.8 Seconds (25.6-37.1)
[2018-12-21 21:53] VITALS: BMI 23.9
[2018-12-21] MEDS ORDERED: Dextrose 5%/Lactated Ringer's 1,000 ML IV SCH (22:15)
[2018-12-22] MEDS: Piperacillin/Tazobact 3.375 GM in Sodium Chloride 0.9% 100 ML IVPB SCH ×3 (00:07→17:36)
[2018-12-22] MEDS: carBAMazepine Chew Tab 100 MG Chew Tab PO SCH (08:46)
[2018-12-22 10:47] LABS: BASO % 0.2 % (0.0-2.0); EOS # 0.3 K/uL (0.0-0.7); EOS % 2.6 % (0.0-4.0); HEMOGLOBIN 13.3 g/dL (12.0-18.0); LYMPH # 1.7 K/uL (1.0-4.3); LYMPH % 13.2 % (20.0-40.0); MEAN CELL VOLUME 96.5 fl (80.0-94.0); MEAN CORPUSCULAR HGB CONC 33.2 g/dL (33.0-37.0); MEAN PLATELET VOLUME 10.2 fl (7.2-11.7); MONO # 0.8 K/uL (0.0-0.8); MONO % 6.6 % (0.0-10.0); NEUT % 77.4 % (50.0-75.0); RBC 4.16 Mil/uL (4.40-5.90); RED CELL DISTRIBUTION WIDTH 13.6 % (11.5-14.5); WHITE BLOOD COUNT 12.9 K/uL (4.8-10.8)
--- NOTE | 2018-12-22 14:05 | CP.PCM.PN ---
Subjective - Date & Time of Evaluation Date of Evaluation: 12/22/18 Time of Evaluation: 12:00 - Subjective Subjective: Patient seen and examined at bedside. Grandmother at bedside. Pain is well controlled. No acute events overnight. Denies fevers/CP/SOB. Objective - Vital Signs/Intake and Output Vital Signs (last 24 hours): Temp Pulse Resp BP Pulse Ox 97.4 F L 83 20 114/66 98 12/22/18 08:23 12/22/18 08:23 12/22/18 08:23 12/22/18 08:23 12/22/18 08:23 - Medications Medications: Current Medications Carbamazepine (Tegretol) 100 mg PO DAILY [facility] Last Admin: 12/22/18 08:46 Dose: 100 mg Docusate Sodium (Colace) 100 mg PO DAILY [facility] Last Admin: 12/22/18 08:46 Dose: 100 mg Piperacillin Sod/Tazobactam (Sod 3.375 gm/ Sodium Chloride) 100 mls @ 100 mls/hr IVPB Q8 [facility]; Protocol Last Admin: 12/22/18 08:46 Dose: 100 mls/hr Vancomycin HCl 1 gm/ Sodium (Chloride) 250 mls @ 166.667 mls/hr IVPB DAILY [facility]; Protocol Last Admin: 12/22/18 10:06 Dose: 166.667 mls/hr Dextrose/Lactated Ringer's (Dextrose 5%/Lactated Ringer's) 1,000 mls @ 80 mls/hr IV .[id number] [facility] Stop: 12/23/18 23:00 Loratadine (Claritin) 10 mg PO DAILY [facility] Last Admin: 12/22/18 08:46 Dose: 10 mg Morphine Sulfate (Morphine) 2 mg IVP Q4 PRN PRN Reason: Pain, severe (8-10) Oxycodone/Acetaminophen (Percocet 5/325 Mg Tab) 1 tab PO Q4 PRN PRN Reason: Pain, moderate (4-7) Stop: 12/24/18 19:10 - Labs Labs: 12/22/18 10:30 12/21/18 16:12 PT 12.6 Seconds (9.8-13.1) 12/21/18 20:13 INR 1.1 12/21/18 20:13 APTT 37.8 Seconds (25.6-37.1) H 12/21/18 20:13 - Extremities Exam Additional comments: RUE: large fluctuant mass at the antecubital elbow extending to proximal forearm, improved since yesterday small punctate lesion with white discharge moderate eugene-mass tenderness sensation intact MN/UN/RN motor intact MN/UN/RN radial pulse intact Assessment and Plan (1) Abscess of forearm, right Assessment & Plan: R forearm I&D tomorrow AM NPO pMN IV abx as per ID warm compress pain control d/w Dr. Cox who agrees with above Status: Acute
--- NOTE | 2018-12-22 14:59 | CP.PCM.CON ---
History of Present Illness - History of Present Illness History of Present Illness: 18 y/o c/o right forearm pain for the last 3 days. Patient reports falling while playing in a park. Over the next few days, he developed severe forearm pain and swelling. Yesterday, he noticed discharge from the area of swelling. He is referreed for ID eval and Rx PMH: Seizures, eczema special needs PSH: denies meds: Tegretol allergy: seasonal SH: denies tobacco/ETOH/drug use Review of Systems - Constitutional Constitutional: As Per HPI - EENT Eyes: absent: As Per HPI, Blind Spots, Blurred Vision, Change in Vision, Decreased Night Vision, Diplopia, Discharge, Dry Eye, Exophthalmos, Floaters, Irritation, Itchy Eyes, Loss of Peripheral Vision, Pain, Photophobia, Requires Corrective Lenses, Sees Flashes, Spots in Vision, Tunnel Vision, Other Visual Disturbances, Loss of Vision, Other Ears: absent: As Per HPI, Decreased Hearing, Ear Discharge, Ear Pain, Tinnitus, Abnormal Hearing, Disequilibrium, Dizziness, Other Nose/Mouth/Throat: absent: As Per HPI, Epistaxis, Nasal Congestion, Nasal Discharge, Nasal Obstruction, Nasal Trauma, Nose Pain, Post Nasal Drip, Sinus Pain, Sinus Pressure, Bleeding Gums, Change in Voice, Dental Pain, Dry Mouth, Dysphagia, Halitosis, Hoarsness, Lip Swelling, Mouth Lesions, Mouth Pain, Odynophagia, Sore Throat, Throat Swelling, Tongue Swelling, Facial Pain, Neck Pain, Neck Mass, Other - Cardiovascular Cardiovascular: absent: As Per HPI, Acrocyanosis, Chest Pain, Chest Pain at Res t, Chest Pain with Activity, Claudication, Diaphoresis, Dyspnea, Dyspnea on Exertion, Edema, Irregular Heart Rhythm, Pain Radiating to Arm/Neck/Jaw, Leg Edema, Leg Ulcers, Lightheadedness, Orthopnea, Palpitations, Paroxysmal Nocturnal Dyspnea, Pedal Edema, Radiating Pain, Rapid Heart Rate, Slow Heart Rate, Syncope, Other - Respiratory Respiratory: absent: As Per HPI, Cough, Dyspnea, Hemoptysis, Dyspnea on Exertion, Wheezing, Snoring, Stridor, Pain on Inspiration, Chest Congestion, Excessive Mucous Production, Change in Mucous Color, Pain with Coughing, Other - Gastrointestinal Gastrointestinal: absent: As Per HPI, Abdominal Pain, Belching, Bloating, Change in Bowel Habits, Change in Stool Character, Coffee Ground Emesis, Constipation, Cramping, Diarrhea, Dyspepsia, Dysphagia, Early Satiety, Excessive Flatus, Fecal Incontinence, Heartburn, Hematemesis, Hematochezia, Loose Stools, Melena, Nausea, Odynophagia, Temesmus, Vomiting, Other - Genitourinary Genitourinary: absent: As Per HPI, Change in Urinary Stream, Difficulty Urinating, Dysuria, Flank Pain, Hematuria, Pyuria, Nocturia, Urinary Incontinence, Urinary Frequency, Urinary Hesitance, Urinary Urgency, Voiding Fr eq/Small Amts, Freq UTI, Hx Renal/Bladder Calculi, Hx /Renal Surgery, Bladder Distension, Other - Musculoskeletal Musculoskeletal: As Per HPI - Integumentary Integumentary: As Per HPI, Skin Pain, Wounds - Neurological Neurological: absent: As Per HPI, Abnormal Gait, Abnormal Hearing, Abnormal Movements, Abnormal Speech, Behavioral Changes, Burning Sensations, Confusion, Convulsions, Disequilibrium, Dizziness, Numbness, Focal Weakness, Frequent Falls, Headaches, Lack of Coordination, Loss of Vision, Memory Loss, Paresthesias, Radicular Pain, Restless Legs, Sensory Deficit, Syncope, Tingling, Tremor, Vertigo, Weakness, Other Visual Disturbances, Other - Psychiatric Psychiatric: absent: As Per HPI, Abnormal Sleep Pattern, Anhedonia, Anxiety, Auditory Hallucinations, Behavioral Changes, Change in Appetite, Change in Libido, Confusion, Depression, Difficulty Concentrating, Hallucinations, Homicidal Ideation, Hopelessness, Irritability, Memory Loss, Mood Swings, Panic Attacks, Paranoia, Suicidal Ideation, Visual Hallucinations, Tactile Hallucinations, Other - Endocrine Endocrine: absent: As Per HPI, Change in Body Appearance, Change in Libido, Cold Intolorance, Deepening of Voice, Excessive Sweating, Fatigue, Flushing, Heat Intolorance, Increase in Ring/Shoe/Hat Size, Palpitations, Polydipsia, Polyphagia, Polyuria, Other - Hematologic/Lymphatic Hematologic: absent: As Per HPI, Easy Bleeding, Easy Bruising, Lymphadenopathy, Other Past Patient History - Past Medical History & Family History Past Medical History?: Yes - Past Social History Smoking Status: Never Smoked - CARDIAC Hx Cardiac Disorders: No - PULMONARY Hx Respiratory Disorders: No - NEUROLOGICAL Hx Seizures: Yes (On Tegretol) - HEENT Hx HEENT Problems: No - RENAL Hx Chronic Kidney Disease: No - ENDOCRINE/METABOLIC Hx Endocrine Disorders: No - HEMATOLOGICAL/ONCOLOGICAL Hx Blood Disorders: No - INTEGUMENTARY Hx Dermatological Problems: Yes Hx Eczema: Yes - MUSCULOSKELETAL/RHEUMATOLOGICAL Hx Musculoskeletal Disorders: No Hx Falls: No - GASTROINTESTINAL Hx Gastrointestinal Disorders: No - GENITOURINARY/GYNECOLOGICAL Hx Genitourinary Disorders: No - PSYCHIATRIC Hx Psychophysiologic Disorder: No Hx Substance Use: No - SURGICAL HISTORY Hx Surgeries: No - ANESTHESIA Hx Anesthesia: No Hx Anesthesia Reactions: No Hx Malignant Hyperthermia: No Meds Allergies/Adverse Reactions: Allergies Allergy/AdvReac Type Severity Reaction Status Date / Time peanut Allergy unknown Verified 12/21/18 15:28 - Medications Medications: Current Medications Carbamazepine (Tegretol) 100 mg PO DAILY [facility] Last Admin: 12/22/18 08:46 Dose: 100 mg Docusate Sodium (Colace) 100 mg PO DAILY [facility] Last Admin: 12/22/18 08:46 Dose: 100 mg Piperacillin Sod/Tazobactam (Sod 3.375 gm/ Sodium Chloride) 100 mls @ 100 mls/hr IVPB Q8 [facility]; Protocol Last Admin: 12/22/18 08:46 Dose: 100 mls/hr Vancomycin HCl 1 gm/ Sodium (Chloride) 250 mls @ 166.667 mls/hr IVPB DAILY [facility]; Protocol Last Admin: 12/22/18 10:06 Dose: 166.667 mls/hr Dextrose/Lactated Ringer's (Dextrose 5%/Lactated Ringer's) 1,000 mls @ 80 mls/hr IV .[id number] [facility] Stop: 12/23/18 23:00 Loratadine (Claritin) 10 mg PO DAILY [facility] Last Admin: 12/22/18 08:46 Dose: 10 mg Morphine Sulfate (Morphine) 2 mg IVP Q4 PRN PRN Reason: Pain, severe (8-10) Oxycodone/Acetaminophen (Percocet 5/325 Mg Tab) 1 tab PO Q4 PRN PRN Reason: Pain, moderate (4-7) Stop: 12/24/18 19:10 Physical Exam - Constitutional Appears: Non-toxic, No Acute Distress, Chronically Ill - Head Exam Head Exam: ATRAUMATIC, NORMAL INSPECTION, NORMOCEPHALIC - Eye Exam Eye Exam: EOMI, Normal appearance, PERRL Pupil Exam: NORMAL ACCOMODATION, PERRL - ENT Exam ENT Exam: Mucous Membranes Moist, Normal Exam - Neck Exam Neck exam: Positive for: Normal Inspection - Respiratory Exam Respiratory Exam: Clear to Auscultation Bilateral, NORMAL BREATHING PATTERN - Cardiovascular Exam Cardiovascular Exam: REGULAR RHYTHM - GI/Abdominal Exam GI & Abdominal Exam: Normal Bowel Sounds, Soft. absent: Tenderness - Rectal Exam Rectal Exam: Deferred - Exam Exam: NORMAL INSPECTION - Extremities Exam Extremities exam: Positive for: normal inspection - Back Exam Back exam: NORMAL INSPECTION - Neurological Exam Neurological exam: Alert, CN II-XII Intact, Normal Gait, Oriented x3, Reflexes Normal - Psychiatric Exam Psychiatric exam: Normal Affect, Normal Mood - Skin Skin Exam: Dry, Erythema, Normal Color, Warm Additional comments: swelling redness and tenderness over right medial antecubital area close to ulnar bone and elbow joint with minimal decrease in extension of right arm Results - Vital Signs Recent Vital Signs: Last Vital Signs Temp 97.4 F L 12/22/18 08:23 Pulse 83 12/22/18 08:23 Resp 20 12/22/18 08:23 BP 114/66 12/22/18 08:23 Pulse Ox 98 12/22/18 08:23 - Labs Result Diagrams: 12/22/18 10:30 12/21/18 16:12 Labs: Laboratory Results - last 24 hr 12/21/18 12/21/18 12/21/18 16:12 16:12 16:42 WBC 15.7 H D RBC 4.31 L Hgb 13.6 D Hct 41.3 MCV 95.8 H MCH 31.6 H MCHC 33.0 RDW 13.5 Plt Count 235 MPV 10.7 Neut % (Auto) 70.8 Lymph % (Auto) 15.7 L Reagan % (Auto) 11.0 H Eos % (Auto) 2.2 Baso % (Auto) 0.3 Neut # (Auto) 11.1 H Lymph # (Auto) 2.5 Reagan # (Auto) 1.7 H Eos # (Auto) 0.3 Baso # (Auto) 0.0 ESR PT INR APTT Sodium 139 Potassium 3.9 Chloride 100 Carbon Dioxide 23 Anion Gap 20 BUN 13 Creatinine 0.7 L Est GFR ( Amer) > 60 Est GFR (Non-Af Amer) > 60 Random Glucose 95 Lactic Acid 2.9 H Calcium 9.3 Total Bilirubin 0.8 AST 32 ALT 13 L D Alkaline Phosphatase 70 Total Protein 8.9 H Albumin 4.7 Globulin 4.2 H Albumin/Globulin Ratio 1.1 Blood Type Blood Type Confirm Antibody Screen BBK History Checked 12/21/18 12/21/18 12/21/18 16:42 20:13 20:13 WBC RBC Hgb Hct MCV MCH MCHC RDW Plt Count MPV Neut % (Auto) Lymph % (Auto) Reagan % (Auto) Eos % (Auto) Baso % (Auto) Neut # (Auto) Lymph # (Auto) Reagan # (Auto) Eos # (Auto) Baso # (Auto) ESR PT 12.6 INR 1.1 APTT 37.8 H Sodium Potassium Chloride Carbon Dioxide Anion Gap BUN Creatinine Est GFR ( Amer) Est GFR (Non-Af Amer) Random Glucose Lactic Acid Calcium Total Bilirubin AST ALT Alkaline Phosphatase Total Protein Albumin Globulin Albumin/Globulin Ratio Blood Type O POSITIVE Blood Type Confirm O POSITIVE Antibody Screen Negative BBK History Checked No verified bt 12/22/18 10:30 WBC 12.9 H RBC 4.16 L Hgb 13.3 Hct 40.1 MCV 96.5 H MCH 32.0 H MCHC 33.2 RDW 13.6 Plt Count 221 MPV 10.2 Neut % (Auto) 77.4 H Lymph % (Auto) 13.2 L Reagan % (Auto) 6.6 Eos % (Auto) 2.6 Baso % (Auto) 0.2 Neut # (Auto) 10.0 H Lymph # (Auto) 1.7 Reagan # (Auto) 0.8 Eos # (Auto) 0.3 Baso # (Auto) 0.0 ESR 48 H PT INR APTT Sodium Potassium Chloride Carbon Dioxide Anion Gap BUN Creatinine Est GFR ( Amer) Est GFR (Non-Af Amer) Random Glucose Lactic Acid Calcium Total Bilirubin AST ALT Alkaline Phosphatase Total Protein Albumin Globulin Albumin/Globulin Ratio Blood Type Blood Type Confirm Antibody Screen BBK History Checked Assessment & Plan (1) Abscess of forearm, right Status: Acute - Assessment and Plan (Free Text) Assessment: severe cellulitis with abscess right arm close to elbow joint For OR and drainage in AM Likely staph infection consider MRI right arm if not done Monitor levels creat await cultures cont IV Vanco/ Zosyn
--- NOTE | 2018-12-22 17:07 | MRI ---
MRI right forearm/elbow History: Abscess. Comparison: None available. Technique: Multi-echo multiplanar sequences were performed through the right forearm and elbow without the use of intravenous contrast. Findings: Marked reticulation and edema consistent with cellulitis seen throughout the subcutaneous soft tissues of the right forearm and elbow most prominent anteriorly and medially. Within the anteromedial subcutaneous soft tissues, there is a large heterogeneous collection measuring 3.3 x 1.5 x 4.8 centimeters. There is a contiguous collection measuring 1.7 x 0.9 x 1.7 centimeters. This demonstrates primarily decreased T1 signal and heterogeneously increased STIR signal. This may represent an underlying abscess versus hematoma versus soft tissue lesion versus additional etiology. Clinical correlation. Signal abnormality within the posterior medial bony olecranon demonstrating patchy decreased T1 signal and increased STIR signal suggestive for a possible developing early acute osteomyelitis. Clinical correlation. Contiguous signal abnormality seen within the underlying musculature of the forearm including the brachioradialis muscle at its anteromedial aspect as well as the pronator teres and flexor carpi radialis as well as the brachialis muscles. This may represent an underlying myositis versus partial tearing and or sprain versus additional etiology. There is a lobulated ovoid lesion seen within the medial deep soft tissues at the level of the distal humerus measuring 1.3 x 1.2 x 1.9 centimeters. This is of uncertain clinical etiology and may represent a prominent lymph node versus soft tissue lesion versus additional etiology. Clinical correlation. Biceps and brachialis tendon insertions are preserved. Triceps tendon insertion is preserved. Mild insertional tendinopathy of the common extensor tendon. Common flexor tendon insertion is preserved. Mild increased signal seen within the proximal attachment of the ulnar collateral ligament suggestive for a low grade sprain. Radial collateral and lateral ulnar collateral ligaments are preserved. Impression: 1. Marked reticulation and edema consistent with cellulitis seen throughout the subcutaneous soft tissues of the right forearm and elbow most prominent anteriorly and medially. Within the anteromedial subcutaneous soft tissues, there is a large heterogeneous collection measuring 3.3 x 1.5 x 4.8 centimeters. There is a contiguous collection measuring 1.7 x 0.9 x 1.7 centimeters. This demonstrates primarily decreased T1 signal and heterogeneously increased STIR signal. This may represent an underlying abscess versus hematoma versus soft tissue lesion versus additional etiology. Clinical correlation. 2. Signal abnormality within the posterior medial bony olecranon demonstrating patchy decreased T1 signal and increased STIR signal suggestive for a possible developing early acute osteomyelitis. Clinical correlation. 3. Contiguous signal abnormality seen within the underlying musculature of the forearm including the brachioradialis muscle at its anteromedial aspect as well as the pronator teres and flexor carpi radialis as well as the brachialis muscles. This may represent an underlying myositis versus partial tearing and or sprain versus additional etiology. 4. There is a lobulated ovoid lesion seen within the medial deep soft tissues at the level of the distal humerus measuring 1.3 x 1.2 x 1.9 centimeters. This is best seen on series 4, image 30. This is of uncertain clinical etiology and may represent a prominent lymph node versus soft tissue lesion versus additional etiology. Clinical correlation. 5. Mild insertional tendinopathy of the common extensor tendon. 6. Mild increased signal seen within the proximal attachment of the ulnar collateral ligament suggestive for a low grade sprain.
[2018-12-22] MEDS: Dextrose 5%/Lactated Ringer's 1,000 ML IV SCH (23:00)
[2018-12-23] MEDS: Piperacillin/Tazobact 3.375 GM in Sodium Chloride 0.9% 100 ML IVPB SCH ×3 (01:55→16:17)
[2018-12-23 04:09] LABS: BASO % 0.3 % (0.0-2.0); BLOOD UREA NITROGEN 12 mg/dl (9-20); CALCIUM 9.1 mg/dL (8.4-10.2); EOS # 0.6 K/uL (0.0-0.7); EOS % 5.2 % (0.0-4.0); GFR NON-AFRICAN AMERICAN > 60; HEMOGLOBIN 13.1 g/dL (12.0-18.0); LYMPH # 3.3 K/uL (1.0-4.3); LYMPH % 28.6 % (20.0-40.0); MEAN CELL VOLUME 95.6 fl (80.0-94.0); MEAN CORPUSCULAR HGB CONC 33.5 g/dL (33.0-37.0); MEAN PLATELET VOLUME 10.6 fl (7.2-11.7); MONO # 0.9 K/uL (0.0-0.8); MONO % 8.1 % (0.0-10.0); NEUT # 6.7 K/uL (1.8-7.0); NEUT % 57.8 % (50.0-75.0); NRBC % 0.1 % (0.0-0.0); RBC 4.1 Mil/uL (4.40-5.90); RED CELL DISTRIBUTION WIDTH 13.1 % (11.5-14.5); WHITE BLOOD COUNT 11.5 K/uL (4.8-10.8)
[2018-12-23] MEDS ORDERED: Propofol 10 mg/ml Inj (20 ML) ONE ×2 (07:24→09:39)
[2018-12-23] MEDS ORDERED: Rocuronium 10 mg/ml (5 ml) ONE (07:24)
[2018-12-23] MEDS ORDERED: Succinylcholine Chloride 20 mg/ml Syr (5 ml) IV ONE (07:24)
[2018-12-23] MEDS ORDERED: Lidocaine 1% Inj (20ml) ONE (07:59)
--- NOTE | 2018-12-23 08:17 | PCM.SURG1 ---
Surgeon's Initial Post Op Note - Surgeon's Notes Surgeon: kelli Drop Hammer Pile Driver Operator: yocasta Type of Anesthesia: General LMA Pre-Operative Diagnosis: r forearm abscess Operative Findings: see dictation Post-Operative Diagnosis: same Operation Performed: InD forearm Specimen/Specimens Removed: abscess Estimated Blood Loss: EBL {In ML}: 10 Date of Surgery/Procedure: 12/23/18 Time of Surgery/Procedure: 09:00
[2018-12-23] MEDS: carBAMazepine Chew Tab 100 MG Chew Tab PO SCH ×2 (08:31→12:02)
[2018-12-23] MEDS ORDERED: Midazolam 2 MG/2 ML VIAL ONE (08:35)
[2018-12-23] MEDS ORDERED: Neostigmine 1:1000 (1 mg/ml) Inj ONE (09:27)
[2018-12-23] MEDS ORDERED: HYDROmorphone 0.5 mg/0.5 ml ISec IVP PRN (10:07)
--- NOTE | 2018-12-23 10:11 | PCM.ANESB4 ---
Infraclavicular Block - Femoral Nerve Block Date of Procedure: 12/23/18 Anesthesiologist: Lin Pre-Procedure Diagnosis: Right elbow cellulitis/abscess Post-Procedure Diagnosis: Same Procedure Performed: Brachial Plexus at the Infraclavicular area Right - Procedure Infraclavicular Block: The procedure was explained to the patient and legal guardian that it is for the post-operative pain management. Consent was obtained from mother after a thorough discussion with the patient regarding the benefits and possible complications of local anesthetic block of the brachial plexus at the infraclavicular area. The patient was brought to the operating room and standard monitors were applied. Time-out was held with the circulating nurse to confirm the correct surgery and the appropriate block. Under general anesthesia, patient's head was gently rotated away from the operative __right shoulder and the area medial to the coracoid process and inferior to the clavicle was carefully palpated. The ultrasound transducer was then applied to the skin in the transverse plane and the brachial plexus was visualized surrounding the axillary artery and deep to the pectoralis major and minor muscles. After thorough identification, this area was prepped with Chloraprep. At this point, a #21 gauge Stimuplex 4-inch needle was inserted cephalad to the ultrasound transducer and inferior to the clavicle in-plane towards the posterior aspect of the axillary artery. Needle advancement was performed carefully under ultrasound visualization. Nerve stimulator was used and twitch of the affected extremity including fingers, hand, wrist and elbow was obtained at minimum current of __0.5___MA. After repeated negative aspiration, __2___cc of __0.25___% __bupivacaine with 1:200,000 was injected and this was followed with __28____ cc of ___0.25____ % ____bupivacaine with 1:200,000 . Under ultrasound guidance the local anesthetics were observed surrounding the cords of the brachial plexus. The needle was removed intact and sterile dressing was applied. The patient had stable vital signs following the block. The patient tolerated the infraclavicular block of the brachial plexus well with stable vital signs was prepared for emergence.
[2018-12-23] MEDS ORDERED: Lactated Ringer's 1,000 ML IV SCH (10:15)
[2018-12-23] MEDS: Dextrose 5%/Lactated Ringer's 1,000 ML IV SCH (12:03)
--- NOTE | 2018-12-23 14:50 | OP ---
PROCEDURE DATE: 12/23/2018 PREOPERATIVE DIAGNOSIS: Right elbow and proximal forearm abscess. POSTOPERATIVE DIAGNOSIS: Right elbow and proximal forearm abscess. PROCEDURES: 1. Right elbow abscess removal and debridement. 2. Right proximal forearm fasciotomy. SURGEON: Martell Cox MD LOADING MACHINE TOOL SETTER: Vikash Faust RPA TYPE OF ANESTHESIA: General and postoperative block. ESTIMATED BLOOD LOSS: Minimal. COMPLICATIONS: None. SPECIMEN: Cultures. DESCRIPTION OF PROCEDURE: The patient was brought to the operating room and placed supine on the operating room table. After general anesthesia was given, a tourniquet was placed on the right upper extremity, then the right extremity was prepped and draped in standard surgical fashion and time-out was performed. An anterior curvilinear incision over the antecubital fossa was outlined. The arm was elevated and exsanguinated. The tourniquet was inflated to 250 mmHg. Incision was made through the skin only. All superficial veins were cauterized. The abscess was encountered deep to the skin. The abscess was then removed with irrigation, curettes and pulse lavage. The wound was copiously irrigated with bacitracin pulse lavage. Non-viable tissue was removed with rongeur and curettes. Next, the proximal fascia of the forearm was incised. The pronator teres and brachioradialis muscles were identified. There were no signs of infection at the muscle belly or deep to it. The incision was carried out proximally medially. The medial neurovascular bundles were also identified. Fascia over the neuromuscular bundle was incised. There were no pockets of pus deep to the bundle. All pockets of collection were freed with the freer and irrigated. Prior to irrigation, 2 culture specimens were sent. Tourniquet was then deflated and hemostasis was obtained. A SANDEEP drain was inserted and the wound was closed with 4-0 nylon interrupted sutures. Sterile dressings were applied with 4 x 4, Alejandro and Xeroform. The patient tolerated the procedure well. He will receive postoperative right upper extremity nerve block and will continue to be monitored and continued on treatment on IV antibiotics. Martell Cox MD
--- NOTE | 2018-12-23 15:33 | CP.PCM.PN ---
Subjective - Date & Time of Evaluation Date of Evaluation: 12/23/18 Time of Evaluation: 08:30 - Subjective Subjective: patient away for procedure at time of evaluation chart reviewed discussed with housestaff follow up after procedure rest of plan as ordered Objective - Vital Signs/Intake and Output Vital Signs (last 24 hours): Temp Pulse Resp BP Pulse Ox 97.9 F 74 20 117/70 100 12/23/18 13:48 12/23/18 13:48 12/23/18 13:48 12/23/18 13:48 12/23/18 13:48 Intake and Output: 12/23/18 12/23/18 06:59 18:59 Intake Total 1200 Balance 1200 - Medications Medications: Current Medications Acetaminophen (Tylenol 325mg Tab) 650 mg PO Q4 PRN PRN Reason: Fever 101 degrees fahrenheit Carbamazepine (Tegretol) 100 mg PO DAILY [facility] Last Admin: 12/23/18 12:02 Dose: 100 mg Docusate Sodium (Colace) 100 mg PO DAILY [facility] Last Admin: 12/23/18 12:02 Dose: 100 mg Piperacillin Sod/Tazobactam (Sod 3.375 gm/ Sodium Chloride) 100 mls @ 100 mls/hr IVPB Q8 [facility]; Protocol Last Admin: 12/23/18 09:05 Dose: 100 mls Dextrose/Lactated Ringer's (Dextrose 5%/Lactated Ringer's) 1,000 mls @ 80 m ls/hr IV .[id number] [facility] Stop: 12/23/18 23:00 Last Admin: 12/23/18 12:03 Dose: Not Given Vancomycin HCl 1 gm/ Sodium (Chloride) 250 mls @ 125 mls/hr IVPB Q12H [facility]; Protocol Last Admin: 12/23/18 03:30 Dose: 125 mls/hr Loratadine (Claritin) 10 mg PO DAILY [facility] Last Admin: 12/23/18 12:02 Dose: 10 mg Morphine Sulfate (Morphine) 2 mg IVP Q4 PRN PRN Reason: Pain, severe (8-10) Ondansetron HCl (Zofran Inj) 4 mg IVP Q4 PRN PRN Reason: Nausea/Vomiting Oxycodone/Acetaminophen (Percocet 5/325 Mg Tab) 1 tab PO Q4 PRN PRN Reason: Pain, moderate (4-7) Stop: 12/24/18 19:10 - Labs Labs: 12/23/18 03:25 12/23/18 03:25 PT 12.6 Seconds (9.8-13.1) 12/21/18 20:13 INR 1.1 12/21/18 20:13 APTT 37.8 Seconds (25.6-37.1) H 12/21/18 20:13 Assessment and Plan (1) Abscess of forearm, right Status: Acute
--- NOTE | 2018-12-23 17:08 | CP.PCM.PN ---
Subjective - Date & Time of Evaluation Date of Evaluation: 12/23/18 Time of Evaluation: 09:00 - Subjective Subjective: wound growing MSSA drain in place s/p I and D Objective - Vital Signs/Intake and Output Vital Signs (last 24 hours): Temp Pulse Resp BP Pulse Ox 98.3 F 85 20 123/62 100 12/23/18 16:03 12/23/18 16:03 12/23/18 16:03 12/23/18 16:03 12/23/18 16:03 Intake and Output: 12/23/18 12/23/18 06:59 18:59 Intake Total 1200 Balance 1200 - Medications Medications: Current Medications Acetaminophen (Tylenol 325mg Tab) 650 mg PO Q4 PRN PRN Reason: Fever 101 degrees fahrenheit Carbamazepine (Tegretol) 100 mg PO DAILY [facility] Last Admin: 12/23/18 12:02 Dose: 100 mg Docusate Sodium (Colace) 100 mg PO DAILY [facility] Last Admin: 12/23/18 12:02 Dose: 100 mg Piperacillin Sod/Tazobactam (Sod 3.375 gm/ Sodium Chloride) 100 mls @ 100 mls/hr IVPB Q8 [facility]; Protocol Last Admin: 12/23/18 16:17 Dose: 100 mls/hr Dextrose/Lactated Ringer's (Dextrose 5%/Lactated Ringer's) 1,000 mls @ 80 mls/hr IV .[id number] [facility] Stop: 12/23/18 23:00 Last Admin: 12/23/18 12:03 Dose: Not Given Vancomycin HCl 1 gm/ Sodium (Chloride) 250 mls @ 125 mls/hr IVPB Q12H [facility]; Protocol Last Admin: 12/23/18 16:18 Dose: 125 mls/hr Loratadine (Claritin) 10 mg PO DAILY [facility] Last Admin: 12/23/18 12:02 Dose: 10 mg Morphine Sulfate (Morphine) 2 mg IVP Q4 PRN PRN Reason: Pain, severe (8-10) Ondansetron HCl (Zofran Inj) 4 mg IVP Q4 PRN PRN Reason: Nausea/Vomiting Oxycodone/Acetaminophen (Percocet 5/325 Mg Tab) 1 tab PO Q4 PRN PRN Reason: Pain, moderate (4-7) Stop: 12/24/18 19:10 - Labs Labs: 05/02/19 03:25 12/23/18 03:25 PT 12.6 Seconds (9.8-13.1) 12/21/18 20:13 INR 1.1 12/21/18 20:13 APTT 37.8 Seconds (25.6-37.1) H 12/21/18 20:13 - Constitutional Appears: Non-toxic, Chronically Ill - Head Exam Head Exam: ATRAUMATIC, NORMAL INSPECTION, NORMOCEPHALIC - Eye Exam Eye Exam: EOMI, Normal appearance, PERRL Pupil Exam: NORMAL ACCOMODATION, PERRL - ENT Exam ENT Exam: Mucous Membranes Moist, Normal Exam - Neck Exam Neck Exam: Full ROM, Normal Inspection. absent: Lymphadenopathy - Respiratory Exam Respiratory Exam: Clear to Ausculation Bilateral, NORMAL BREATHING PATTERN - Cardiovascular Exam Cardiovascular Exam: REGULAR RHYTHM, +S1, +S2. absent: Murmur - GI/Abdominal Exam GI & Abdominal Exam: Soft, Normal Bowel Sounds. absent: Tenderness - Rectal Exam Rectal Exam: Deferred - Extremities Exam Extremities Exam: Full ROM, Joint Swelling, Normal Capillary Refill, Tenderness. absent: Calf Tenderness, Normal Inspection, Pedal Edema - Back Exam Back Exam: NORMAL INSPECTION - Neurological Exam Neurological Exam: Alert, Awake, CN II-XII Intact, Normal Gait, Oriented x3 - Psychiatric Exam Psychiatric exam: Normal Affect, Normal Mood - Skin Skin Exam: Dry, Intact, Normal Color, Warm Assessment and Plan (1) Abscess of forearm, right Status: Acute - Assessment and Plan (Free Text) Assessment: possible early acute ulnar OM by MRI cont IV rx for min 21 days
--- NOTE | 2018-12-24 00:08 | CP.PCM.HP ---
History of Present Illness - History of Present Illness History of Present Illness: CC: Right arm swelling with a draining lesion. HPI: 18 year old male with a PMH of seizures and cognitive delay presented to the ED with right arm swelling, pinpoint lesion, and purulent discharge from the site. As per the pt, he fell outside while playing and scraped the antecubital area of this right arm. As per the patient's mother, he has been hiding the injury for several days. At present, the pt is on IV antibiotics and is for I&D tomorrow. PMH: Seizures, cognitive delay. PSH: None. Allergies: Peanut. Subjective Review of Systems: Reviewed and no additional remarkable complaints except pain to the right elbow crease. Objective Appears: Anxious, Non-toxic, No Acute Distress. Head Exam: NORMAL INSPECTION, normocephalic. Eye Exam: Normal eye inspection, EOMI, PERRLA. Respiratory Exam: NORMAL BREATHING PATTERN, breath sounds clear bilaterally. Cardiovascular Exam: +S1, +S2. RRR. GI & Abdominal Exam: Soft, non-tender, non-distended. Neurological Exam: Alert, Awake, Oriented x3. Psychiatric exam: Normal mood. Calm and cooperative. Skin Exam: Right arm swelling with a small lesion in the antecubital area, yellow-white discharge noted. Assessment/Impression/Plan: 1.) Cellulitis/Right upper arm abscess -On Vanco and Zosyn. -Infectious disease and orthopedic consults input appreciated. -Wound care and dressing changes regularly. -For I&D tomorrow. -Continue current treatment. Present on Admission - Present on Admission Any Indicators Present on Admission: No Past Patient History - Past Medical History & Family History Past Medical History?: Yes - Past Social History Drugs: Denies - CARDIAC Hx Cardiac Disorders: No - PULMONARY Hx Respiratory Disorders: No - NEUROLOGICAL Hx Seizures: Yes (On Tegretol) - HEENT Hx HEENT Problems: No - RENAL Hx Chronic Kidney Disease: No - ENDOCRINE/METABOLIC Hx Endocrine Disorders: No - HEMATOLOGICAL/ONCOLOGICAL Hx Blood Disorders: No - INTEGUMENTARY Hx Dermatological Problems: Yes Hx Eczema: Yes - MUSCULOSKELETAL/RHEUMATOLOGICAL Hx Musculoskeletal Disorders: No Hx Falls: No - GASTROINTESTINAL Hx Gastrointestinal Disorders: No - GENITOURINARY/GYNECOLOGICAL Hx Genitourinary Disorders: No - PSYCHIATRIC Hx Psychophysiologic Disorder: No Hx Substance Use: No - SURGICAL HISTORY Hx Surgeries: No - ANESTHESIA Hx Anesthesia: No Hx Anesthesia Reactions: No Hx Malignant Hyperthermia: No Meds Allergies/Adverse Reactions: Allergies Allergy/AdvReac Type Severity Reaction Status Date / Time peanut Allergy unknown Verified 12/21/18 15:28 Results - Vital Signs Recent Vital Signs: Last Vital Signs Temp 98.2 F 12/23/18 23:38 Pulse 65 12/23/18 23:38 Resp 20 12/23/18 23:38 BP 107/62 12/23/18 23:38 Pulse Ox 100 12/23/18 23:38 - Labs Result Diagrams: 12/23/18 03:25 12/23/18 03:25 Labs: Laboratory Results - last 24 hr 12/23/18 12/23/18 12/23/18 03:25 03:25 03:25 WBC 11.5 H RBC 4.10 L Hgb 13.1 Hct 39.2 MCV 95.6 H MCH 32.0 H MCHC 33.5 RDW 13.1 Plt Count 231 MPV 10.6 Neut % (Auto) 57.8 Lymph % (Auto) 28.6 Phillips % (Auto) 8.1 Eos % (Auto) 5.2 H Baso % (Auto) 0.3 Neut # (Auto) 6.7 Lymph # (Auto) 3.3 Phillips # (Auto) 0.9 H Eos # (Auto) 0.6 Baso # (Auto) 0.0 Sodium 137 Potassium 3.6 Chloride 102 Carbon Dioxide 24 Anion Gap 15 BUN 12 Creatinine 0.7 L Est GFR ( Amer) > 60 Est GFR (Non-Af Amer) > 60 Random Glucose 96 Calcium 9.1 Vancomycin Trough < 5.0 L Assessment & Plan (1) Abscess of forearm, right Status: Acute (2) Cellulitis and abscess of upper arm and forearm Status: Acute
[2018-12-24] MEDS: Piperacillin/Tazobact 3.375 GM in Sodium Chloride 0.9% 100 ML IVPB SCH ×3 (00:10→16:45)
[2018-12-24 06:26] LABS: MEAN CELL VOLUME 95.6 fl (80.0-94.0); MEAN CORPUSCULAR HEMOGLOBIN 31.3 pg (27.0-31.0); MEAN CORPUSCULAR HGB CONC 32.8 g/dL (33.0-37.0); RBC 3.82 Mil/uL (4.40-5.90)
[2018-12-24 06:29] LABS: BLOOD UREA NITROGEN 13 mg/dl (9-20); CALCIUM 8.3 mg/dL (8.4-10.2); GFR NON-AFRICAN AMERICAN > 60
[2018-12-24] MEDS: carBAMazepine Chew Tab 100 MG Chew Tab PO SCH (08:57)
--- NOTE | 2018-12-24 13:33 | RAD ---
Date of service: 12/24/2018 PROCEDURE: CHEST RADIOGRAPH, 1 VIEW HISTORY: for PICC line verification COMPARISON: 07/25/2018. FINDINGS: LUNGS: Clear. PLEURA: No pneumothorax or pleural fluid seen. CARDIOVASCULAR: No aortic atherosclerotic calcification present. No radiographic findings to suggest acute or significant cardiovascular disease. OSSEOUS STRUCTURES: No significant abnormalities. VISUALIZED UPPER ABDOMEN: Normal. OTHER FINDINGS: PICC line in satisfactory position catheter inserted via left upper extremity approach. The tip appears to be at the junction of the superior vena cava and the left subclavian vein. IMPRESSION: No active disease. No adverse findings common no pneumothorax following PICC line placement.
--- NOTE | 2018-12-24 13:36 | CP.PCM.PN ---
Subjective - Date & Time of Evaluation Date of Evaluation: 12/24/18 Time of Evaluation: 08:00 - Subjective Subjective: no fever less drainage cultures reviewed IV Rosalinao d/c'd Objective - Vital Signs/Intake and Output Vital Signs (last 24 hours): Temp Pulse Resp BP Pulse Ox 98.4 F 94 H 20 106/60 99 12/24/18 07:54 12/24/18 07:54 12/24/18 07:54 12/24/18 07:54 12/24/18 07:54 - Medications Medications: Current Medications Acetaminophen (Tylenol 325mg Tab) 650 mg PO Q4 PRN PRN Reason: Fever 101 degrees fahrenheit Carbamazepine (Tegretol) 100 mg PO DAILY [facility] Last Admin: 12/24/18 08:57 Dose: 100 mg Docusate Sodium (Colace) 100 mg PO DAILY [facility] Last Admin: 12/24/18 08:57 Dose: 100 mg Piperacillin Sod/Tazobactam (Sod 3.375 gm/ Sodium Chloride) 100 mls @ 100 mls/hr IVPB Q8 [facility]; Protocol Last Admin: 12/24/18 08:56 Dose: 100 mls/hr Vancomycin HCl 1 gm/ Sodium (Chloride) 250 mls @ 125 mls/hr IVPB Q12H [facility]; [facility] Last Admin: 12/24/18 02:17 Dose: 125 mls/hr Loratadine (Claritin) 10 mg PO DAILY [facility] Last Admin: 12/24/18 08:57 Dose: 10 mg Morphine Sulfate (Morphine) 2 mg IVP Q4 PRN PRN Reason: Pain, severe (8-10) Ondansetron HCl (Zofran Inj) 4 mg IVP Q4 PRN PRN Reason: Nausea/Vomiting Oxycodone/Acetaminophen (Percocet 5/325 Mg Tab) 1 tab PO Q4 PRN PRN Reason: Pain, moderate (4-7) Stop: 12/24/18 19:10 - Labs Labs: 12/24/18 05:45 12/24/18 05:45 PT 12.6 Seconds (9.8-13.1) 12/21/18 20:13 INR 1.1 12/21/18 20:13 APTT 37.8 Seconds (25.6-37.1) H 12/21/18 20:13 - Constitutional Appears: Non-toxic, Chronically Ill - Head Exam Head Exam: ATRAUMATIC, NORMAL INSPECTION, NORMOCEPHALIC - Eye Exam Eye Exam: EOMI, Normal appearance, PERRL Pupil Exam: NORMAL ACCOMODATION, PERRL - ENT Exam ENT Exam: Mucous Membranes Moist, Normal Exam - Neck Exam Neck Exam: Full ROM, Normal Inspection. absent: Lymphadenopathy - Respiratory Exam Respiratory Exam: Clear to Ausculation Bilateral, NORMAL BREATHING PATTERN - Cardiovascular Exam Cardiovascular Exam: REGULAR RHYTHM, +S1, +S2. absent: Murmur - GI/Abdominal Exam GI & Abdominal Exam: Distended, Soft. absent: Tenderness - Rectal Exam Rectal Exam: Deferred - Exam Exam: NORMAL INSPECTION - Extremities Exam Extremities Exam: Full ROM, Normal Capillary Refill. absent: Joint Swelling, Normal Inspection, Pedal Edema Additional comments: swelling right arm drain in place - Back Exam Back Exam: NORMAL INSPECTION - Neurological Exam Neurological Exam: Alert, Awake, CN II-XII Intact, Normal Gait, Oriented x3 - Psychiatric Exam Psychiatric exam: Normal Affect, Normal Mood - Skin Skin Exam: Dry, Intact, Normal Color, Warm Assessment and Plan (1) Abscess of forearm, right Status: Acute (2) Acute osteomyelitis Status: Acute - Assessment and Plan (Free Text) Assessment: cont iv rx 3- 6 weeks for MSSA possible OM right elbow as per MRI read follow up imaging and ortho follow up recommended
[2018-12-25] MEDS: Piperacillin/Tazobact 3.375 GM in Sodium Chloride 0.9% 100 ML IVPB SCH ×3 (00:41→16:41)
[2018-12-25] MEDS: carBAMazepine Chew Tab 100 MG Chew Tab PO SCH (08:53)
[2018-12-25] MEDS ORDERED: DiphenhydrAMINE 50 mg/ml Inj IVP STA (18:40)
[2018-12-26] MEDS: Piperacillin/Tazobact 3.375 GM in Sodium Chloride 0.9% 100 ML IVPB SCH ×2 (00:02→10:19)
[2018-12-26] MEDS: carBAMazepine Chew Tab 100 MG Chew Tab PO SCH (10:19)
--- NOTE | 2018-12-26 13:52 | CP.PCM.PN ---
Subjective - Date & Time of Evaluation Date of Evaluation: 12/26/18 Time of Evaluation: 08:00 - Subjective Subjective: c/o rash switch to ancef Objective - Vital Signs/Intake and Output Vital Signs (last 24 hours): Temp Pulse Resp BP Pulse Ox 97.8 F 80 20 147/80 98 12/26/18 08:29 12/26/18 08:29 12/26/18 08:29 12/26/18 08:29 12/26/18 08:29 - Medications Medications: Current Medications Acetaminophen (Tylenol 325mg Tab) 650 mg PO Q4 PRN PRN Reason: Fever 101 degrees fahrenheit Carbamazepine (Tegretol) 100 mg PO DAILY [facility] Last Admin: 12/26/18 10:19 Dose: 100 mg Diphenhydramine HCl (Benadryl) 25 mg IVP Q4 PRN PRN Reason: Allergy symptoms Docusate Sodium (Colace) 100 mg PO DAILY [facility] Last Admin: 12/26/18 10:18 Dose: 100 mg Hydrocortisone (Hydrocortisone 2.5%) 1 applic TOP BID [facility] Last Admin: 12/26/18 13:34 Dose: 1 u Loratadine (Claritin) 10 mg PO DAILY [facility] Last Admin: 12/26/18 10:18 Dose: 10 mg Morphine Sulfate (Morphine) 2 mg IVP Q4 PRN PRN Reason: Pain, severe (8-10) Ondansetron HCl (Zofran Inj) 4 mg IVP Q4 PRN PRN Reason: Nausea/Vomiting - Labs Labs: 12/24/18 05:45 12/24/18 05:45 PT 12.6 Seconds (9.8-13.1) 12/21/18 20:13 INR 1.1 12/21/18 20:13 APTT 37.8 Seconds (25.6-37.1) H 12/21/18 20:13 - Constitutional Appears: Non-toxic, Chronically Ill - Head Exam Head Exam: ATRAUMATIC, NORMAL INSPECTION, NORMOCEPHALIC - Eye Exam Eye Exam: EOMI, Normal appearance, PERRL Pupil Exam: NORMAL ACCOMODATION, PERRL - ENT Exam ENT Exam: Mucous Membranes Moist, Normal Exam - Neck Exam Neck Exam: Full ROM, Normal Inspection. absent: Lymphadenopathy - Respiratory Exam Respiratory Exam: Clear to Ausculation Bilateral, NORMAL BREATHING PATTERN - Cardiovascular Exam Cardiovascular Exam: REGULAR RHYTHM, +S1, +S2. absent: Murmur - GI/Abdominal Exam GI & Abdominal Exam: Soft, Normal Bowel Sounds. absent: Tenderness - Rectal Exam Rectal Exam: Deferred - Exam Exam: NORMAL INSPECTION - Extremities Exam Extremities Exam: Full ROM, Normal Capillary Refill, Normal Inspection. absent: Joint Swelling, Pedal Edema - Back Exam Back Exam: NORMAL INSPECTION - Neurological Exam Neurological Exam: Alert, Awake, CN II-XII Intact, Normal Gait, Oriented x3 - Psychiatric Exam Psychiatric exam: Normal Affect, Normal Mood - Skin Skin Exam: Dry, Intact, Rash Assessment and Plan (1) Abscess of forearm, right Status: Acute (2) Acute osteomyelitis Status: Acute - Assessment and Plan (Free Text) Assessment: IV Ancef for 4-6 weeks
[2018-12-26] MEDS: DiphenhydrAMINE 50 mg/ml Inj IVP PRN (16:31)
[2018-12-26] MEDS: ceFAZolin 2 GM in Sodium Chloride 0.9% 100 ML IVPB SCH (17:48)
--- NOTE | 2018-12-26 19:25 | CP.PCM.PN ---
Subjective - Date & Time of Evaluation Date of Evaluation: 12/24/18 Time of Evaluation: 10:40 - Subjective Subjective: Patient has no fever On IV antibiotics Has no cough. Objective - Vital Signs/Intake and Output Vital Signs (last 24 hours): Temp Pulse Resp BP Pulse Ox 97.3 F L 73 18 133/88 100 12/26/18 16:30 12/26/18 16:30 12/26/18 16:30 12/26/18 16:30 12/26/18 16:30 - Medications Medications: Current Medications Acetaminophen (Tylenol 325mg Tab) 650 mg PO Q4 PRN PRN Reason: Fever 101 degrees fahrenheit Carbamazepine (Tegretol) 100 mg PO DAILY [facility] Last Admin: 12/26/18 10:19 Dose: 100 mg Diphenhydramine HCl (Benadryl) 25 mg IVP Q4 PRN PRN Reason: Allergy symptoms Last Admin: 12/26/18 16:31 Dose: 25 mg Docusate Sodium (Colace) 100 mg PO DAILY [facility] Last Admin: 12/26/18 10:18 Dose: 100 mg Hydrocortisone (Hydrocortisone 2.5%) 1 applic TOP BID [facility] Last Admin: 12/26/18 16:32 Dose: 1 u Cefazolin Sodium 2 gm/ Sodium (Chloride) 100 mls @ 100 mls/hr IVPB Q8 [facility] Last Admin: 12/26/18 17:48 Dose: 100 mls/hr Loratadine (Claritin) 10 mg PO DAILY [facility] Last Admin: 12/26/18 10:18 Dose: 10 mg Morphine Sulfate (Morphine) 2 mg IVP Q4 PRN PRN Reason: Pain, severe (8-10) Ondansetron HCl (Zofran Inj) 4 mg IVP Q4 PRN PRN Reason: Nausea/Vomiting - Labs Labs: 12/24/18 05:45 12/24/18 05:45 PT 12.6 Seconds (9.8-13.1) 12/21/18 20:13 INR 1.1 12/21/18 20:13 APTT 37.8 Seconds (25.6-37.1) H 12/21/18 20:13 - Head Exam Head Exam: NORMAL INSPECTION - Eye Exam Eye Exam: Normal appearance - ENT Exam ENT Exam: Mucous Membranes Moist - Respiratory Exam Respiratory Exam: Clear to Ausculation Bilateral - Cardiovascular Exam Cardiovascular Exam: REGULAR RHYTHM - GI/Abdominal Exam GI & Abdominal Exam: Normal Bowel Sounds - Neurological Exam Neurological Exam: Awake, Oriented x3 Assessment and Plan (1) Cellulitis and abscess of upper arm and forearm Status: Acute (2) Abscess of forearm, right Status: Acute - Assessment and Plan (Free Text) Plan: Cont meds COnt IV antibiotics wound care
--- NOTE | 2018-12-27 00:38 | CP.PCM.PN ---
Subjective - Date & Time of Evaluation Date of Evaluation: 12/25/18 Time of Evaluation: 09:00 - Subjective Subjective: Pt seen and assessed at bedside. No new changes since I&D was done. Remains afebrile and states pain is improving. Subjective Review of Systems: Reviewed and no additional remarkable complaints except intermittent pain to the right elbow crease. Objective Appears: Anxious, Non-toxic, No Acute Distress. Head Exam: NORMAL INSPECTION, normocephalic. Eye Exam: Normal eye inspection, EOMI, PERRLA. Respiratory Exam: NORMAL BREATHING PATTERN, breath sounds clear bilaterally. Cardiovascular Exam: +S1, +S2. RRR. GI & Abdominal Exam: Soft, non-tender, non-distended. Neurological Exam: Alert, Awake, Oriented x3. Psychiatric exam: Normal mood. Calm and cooperative. Skin Exam: Right arm dressing in place. Assessment/Impression/Plan: 1.) Cellulitis/Right upper arm abscess -On Zosyn IVPB. Pt will need halfway antibiotics. -Infectious disease and orthopedic consults input appreciated. -Wound care and dressing changes regularly. -Continue current treatment. -For possible ROSA. Objective - Vital Signs/Intake and Output Vital Signs (last 24 hours): Temp Pulse Resp BP Pulse Ox 97.4 F L 76 18 121/76 100 12/27/18 00:02 12/27/18 00:02 12/27/18 00:02 12/27/18 00:02 12/27/18 00:02 - Medications Medications: Current Medications Acetaminophen (Tylenol 325mg Tab) 650 mg PO Q4 PRN PRN Reason: Fever 101 degrees fahrenheit Carbamazepine (Tegretol) 100 mg PO DAILY [facility] Last Admin: 12/26/18 10:19 Dose: 100 mg Diphenhydramine HCl (Benadryl) 25 mg IVP Q4 PRN PRN Reason: Allergy symptoms Last Admin: 12/26/18 16:31 Dose: 25 mg Docusate Sodium (Colace) 100 mg PO DAILY [facility] Last Admin: 12/26/18 10:18 Dose: 100 mg Hydrocortisone (Hydrocortisone 2.5%) 1 applic TOP BID [facility] Last Admin: 12/26/18 16:32 Dose: 1 u Cefazolin Sodium 2 gm/ Sodium (Chloride) 100 mls @ 100 mls/hr IVPB Q8 [facility] Last Admin: 12/26/18 17:48 Dose: 100 mls/hr Loratadine (Claritin) 10 mg PO DAILY [facility] Last Admin: 12/26/18 10:18 Dose: 10 mg Morphine Sulfate (Morphine) 2 mg IVP Q4 PRN PRN Reason: Pain, severe (8-10) Ondansetron HCl (Zofran Inj) 4 mg IVP Q4 PRN PRN Reason: Nausea/Vomiting - Labs Labs: 12/24/18 05:45 12/24/18 05:45 PT 12.6 Seconds (9.8-13.1) 12/21/18 20:13 INR 1.1 12/21/18 20:13 APTT 37.8 Seconds (25.6-37.1) H 12/21/18 20:13 Assessment and Plan (1) Abscess of forearm, right Status: Acute (2) Cellulitis and abscess of upper arm and forearm Status: Acute
[2018-12-27] MEDS: ceFAZolin 2 GM in Sodium Chloride 0.9% 100 ML IVPB SCH ×3 (00:39→16:55)
--- NOTE | 2018-12-27 00:52 | CP.PCM.PN ---
Subjective - Date & Time of Evaluation Date of Evaluation: 12/26/18 Time of Evaluation: 11:00 - Subjective Subjective: Pt seen and assessed at bedside, had an allergic reaction episode in the evening after eating fish. The pt received benadryl IV and the symptoms subsided. Today on assessment, the pt had another episode of urticaria, predominantly on the anterior neck. Given the timing of the reaction (shortly after receiving Zosyn), it is likely that the pt has a PCN allergy. Subjective Review of Systems: Reviewed and no additional remarkable complaints except intermittent pain to the right elbow crease and hives to the front of the neck. Objective Appears: Anxious, Non-toxic, No Acute Distress. Head Exam: NORMAL INSPECTION, normocephalic. Eye Exam: Normal eye inspection, EOMI, PERRLA. Respiratory Exam: NORMAL BREATHING PATTERN, breath sounds clear bilaterally. Cardiovascular Exam: +S1, +S2. RRR. GI & Abdominal Exam: Soft, non-tender, non-distended. Neurological Exam: Alert, Awake, Oriented x3. Psychiatric exam: Normal mood. Calm and cooperative. Skin Exam: Right arm dressing in place. Urticaria to the anterior neck. Assessment/Impression/Plan: 1.) Allergic Reaction -Pt c/o rash to the neck after eating fish yesterday; received benadryl. -Benadryl 25 mg IV q4h PRN ordered for allergic episodes. -The pt has a h/o eczema and the family believes the recent allergy is either eczema related or due to eating fish. -However, due to the timing of the allergic outbreaks (shortly after receiving Zosyn), must consider potential cross-reactivity/PCN allergy. -Recommend switching IV antibiotics at this time. 2.) Cellulitis/Right upper arm abscess -For possible ROSA at [facility]. -Pt will need terminal gauger antibiotics. -Infectious disease and orthopedic consults input appreciated. -Wound care and dressing changes regularly. -Monitor for s/s infection. -Continue current treatment. Objective - Vital Signs/Intake and Output Vital Signs (last 24 hours): Temp Pulse Resp BP Pulse Ox 97.4 F L 76 18 121/76 100 12/27/18 00:02 12/27/18 00:02 12/27/18 00:02 12/27/18 00:02 12/27/18 00:02 - Medications Medications: Current Medications Acetaminophen (Tylenol 325mg Tab) 650 mg PO Q4 PRN PRN Reason: Fever 101 degrees fahrenheit Carbamazepine (Tegretol) 100 mg PO DAILY [facility] Last Admin: 12/26/18 10:19 Dose: 100 mg Diphenhydramine HCl (Benadryl) 25 mg IVP Q4 PRN PRN Reason: Allergy symptoms Last Admin: 12/26/18 16:31 Dose: 25 mg Docusate Sodium (Colace) 100 mg PO DAILY [facility] Last Admin: 12/26/18 10:18 Dose: 100 mg Hydrocortisone (Hydrocortisone 2.5%) 1 applic TOP BID [facility] Last Admin: 12/26/18 16:32 Dose: 1 u Cefazolin Sodium 2 gm/ Sodium (Chloride) 100 mls @ 100 mls/hr IVPB Q8 [facility] Last Admin: 12/27/18 00:39 Dose: 100 mls/hr Loratadine (Claritin) 10 mg PO DAILY [facility] Last Admin: 12/26/18 10:18 Dose: 10 mg Morphine Sulfate (Morphine) 2 mg IVP Q4 PRN PRN Reason: Pain, severe (8-10) Ondansetron HCl (Zofran Inj) 4 mg IVP Q4 PRN PRN Reason: Nausea/Vomiting - Labs Labs: 12/24/18 05:45 12/24/18 05:45 PT 12.6 Seconds (9.8-13.1) 12/21/18 20:13 INR 1.1 12/21/18 20:13 APTT 37.8 Seconds (25.6-37.1) H 12/21/18 20:13 Assessment and Plan (1) Abscess of forearm, right Status: Acute (2) Cellulitis and abscess of upper arm and forearm Status: Acute (3) Allergic reaction Status: Acute (4) Allergic reaction caused by a drug Status: Acute
--- NOTE | 2018-12-27 08:08 | RAD ---
Date of service: 12/27/2018 HISTORY: PICC line placement COMPARISON: Portable chest 12/24/2018, 12:49 p.m.. TECHNIQUE: 1 view obtained. FINDINGS: LUNGS: No active pulmonary disease. PLEURA: No significant pleural effusion identified, no pneumothorax apparent. CARDIOVASCULAR: No aortic atherosclerotic calcification present. Normal cardiac size. No pulmonary vascular congestion. Stable left upper extremity PICC insertion. OSSEOUS STRUCTURES: No significant abnormalities. VISUALIZED UPPER ABDOMEN: Normal. OTHER FINDINGS: None. IMPRESSION: No interval acute cardiopulmonary disease appreciated.
--- NOTE | 2018-12-27 09:00 | CP.PCM.PN ---
Subjective - Date & Time of Evaluation Date of Evaluation: 12/27/18 Time of Evaluation: 08:00 - Subjective Subjective: Patient seen and examined at bedside comfortable. Pain well controlled. Allergic reaction yesterday, questionable agent, fish vs ancef. Offers no new complaints. Objective - Vital Signs/Intake and Output Vital Signs (last 24 hours): Temp Pulse Resp BP Pulse Ox 97.8 F 72 18 106/54 L 97 12/27/18 08:32 12/27/18 08:32 12/27/18 08:32 12/27/18 08:32 12/27/18 08:32 - Medications Medications: Current Medications Acetaminophen (Tylenol 325mg Tab) 650 mg PO Q4 PRN PRN Reason: Fever 101 degrees fahrenheit Carbamazepine (Tegretol) 100 mg PO DAILY [facility] Last Admin: 12/26/18 10:19 Dose: 100 mg Diphenhydramine HCl (Benadryl) 25 mg IVP Q4 PRN PRN Reason: Allergy symptoms Last Admin: 12/26/18 16:31 Dose: 25 mg Docusate Sodium (Colace) 100 mg PO DAILY [facility] Last Admin: 12/26/18 10:18 Dose: 100 mg Hydrocortisone (Hydrocortisone 2.5%) 1 applic TOP BID [facility] Last Admin: 12/26/18 16:32 Dose: 1 u Cefazolin Sodium 2 gm/ Sodium (Chloride) 100 mls @ 100 mls/hr IVPB Q8 [facility] Last Admin: 12/27/18 00:39 Dose: 100 mls/hr Loratadine (Claritin) 10 mg PO DAILY [facility] Last Admin: 12/26/18 10:18 Dose: 10 mg Morphine Sulfate (Morphine) 2 mg IVP Q4 PRN PRN Reason: Pain, severe (8-10) Ondansetron HCl (Zofran Inj) 4 mg IVP Q4 PRN PRN Reason: Nausea/Vomiting - Labs Labs: 12/24/18 05:45 12/24/18 05:45 PT 12.6 Seconds (9.8-13.1) 12/21/18 20:13 INR 1.1 12/21/18 20:13 APTT 37.8 Seconds (25.6-37.1) H 12/21/18 20:13 - Extremities Exam Additional comments: RUE: Dressings CDI Incsion CDI with nylon sutures antecubital non-tender indurated mass, postop changes sensation and motor intact MN/UN/RN radial pulse intact Assessment and Plan (1) Abscess of forearm, right Assessment & Plan: POD#4 S/P R elbow abscess I&D -abx as per ID -pain controlled -OT ROM as barbara -orthopedically stable for discharge -f/u in office within 7-10 days -d/w Dr. Cox who agrees with above Status: Acute
[2018-12-27] MEDS: carBAMazepine Chew Tab 100 MG Chew Tab PO SCH (10:17)
[2018-12-27 12:35] LABS: BASO % 0.7 % (0.0-2.0); EOS # 0.8 K/uL (0.0-0.7); EOS % 12.4 % (0.0-4.0); HEMOGLOBIN 13.6 g/dL (12.0-18.0); LYMPH # 1.8 K/uL (1.0-4.3); LYMPH % 28.2 % (20.0-40.0); MEAN CELL VOLUME 95.3 fl (80.0-94.0); MEAN CORPUSCULAR HGB CONC 33.6 g/dL (33.0-37.0); MEAN PLATELET VOLUME 9.8 fl (7.2-11.7); MONO # 0.7 K/uL (0.0-0.8); NEUT % 47.7 % (50.0-75.0); NRBC % 0.1 % (0.0-0.0); RBC 4.26 Mil/uL (4.40-5.90); RED CELL DISTRIBUTION WIDTH 13.2 % (11.5-14.5); WHITE BLOOD COUNT 6.3 K/uL (4.8-10.8)
[2018-12-27 12:56] LABS: ALB/GLOB RATIO 1.2 (1.0-2.1); ALBUMIN 4.1 g/dL (3.5-5.0); ALT/SGPT 32 U/L (21-72); AST/SGOT 29 U/L (17-59); BLOOD UREA NITROGEN 13 mg/dl (9-20); CALCIUM 8.8 mg/dL (8.4-10.2); GFR NON-AFRICAN AMERICAN > 60
--- NOTE | 2018-12-27 17:43 | CP.PCM.PN ---
Subjective - Date & Time of Evaluation Date of Evaluation: 12/27/18 Time of Evaluation: 10:00 - Subjective Subjective: patient seen and examined at bedside. Interim events noted No complaints offered at this time denies cp/sob/fever/chills. 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 rest of plan as ordered Objective - Vital Signs/Intake and Output Vital Signs (last 24 hours): Temp Pulse Resp BP Pulse Ox 98.3 F 80 18 130/86 96 12/27/18 16:10 12/27/18 16:10 12/27/18 16:10 12/27/18 16:10 12/27/18 16:10 - Medications Medications: Current Medications Acetaminophen (Tylenol 325mg Tab) 650 mg PO Q4 PRN PRN Reason: Fever 101 degrees fahrenheit Carbamazepine (Tegretol) 100 mg PO DAILY [facility] Last Admin: 12/27/18 10:17 Dose: 100 mg Diphenhydramine HCl (Benadryl) 25 mg IVP Q4 PRN PRN Reason: Allergy symptoms Last Admin: 12/26/18 16:31 Dose: 25 mg Docusate Sodium (Colace) 100 mg PO DAILY [facility] Last Admin: 12/27/18 10:16 Dose: 100 mg Hydrocortisone (Hydrocortisone 2.5%) 1 applic TOP BID [facility] Last Admin: 12/27/18 10:17 Dose: 1 u Cefazolin Sodium 2 gm/ Sodium (Chloride) 100 mls @ 100 mls/hr IVPB Q8 [facility] Last Admin: 12/27/18 16:55 Dose: 100 mls/hr Loratadine (Claritin) 10 mg PO DAILY [facility] Last Admin: 12/27/18 10:16 Dose: 10 mg Morphine Sulfate (Morphine) 2 mg IVP Q4 PRN PRN Reason: Pain, severe (8-10) Ondansetron HCl (Zofran Inj) 4 mg IVP Q4 PRN PRN Reason: Nausea/Vomiting - Labs Labs: 12/27/18 12:30 12/27/18 12:30 PT 12.6 Seconds (9.8-13.1) 12/21/18 20:13 INR 1.1 12/21/18 20:13 APTT 37.8 Seconds (25.6-37.1) H 12/21/18 20:13 Assessment and Plan (1) Abscess of forearm, right Status: Acute
--- NOTE | 2018-12-27 22:34 | CP.PCM.PN ---
Subjective - Date & Time of Evaluation Date of Evaluation: 12/27/18 Time of Evaluation: 09:00 - Subjective Subjective: iv rx in progress 'rash resolved Objective - Vital Signs/Intake and Output Vital Signs (last 24 hours): Temp Pulse Resp BP Pulse Ox 98.3 F 80 18 130/86 96 12/27/18 16:10 12/27/18 16:10 12/27/18 16:10 12/27/18 16:10 12/27/18 16:10 - Medications Medications: Current Medications Acetaminophen (Tylenol 325mg Tab) 650 mg PO Q4 PRN PRN Reason: Fever 101 degrees fahrenheit Carbamazepine (Tegretol) 100 mg PO DAILY [facility] Last Admin: 12/27/18 10:17 Dose: 100 mg Diphenhydramine HCl (Benadryl) 25 mg IVP Q4 PRN PRN Reason: Allergy symptoms Last Admin: 12/26/18 16:31 Dose: 25 mg Docusate Sodium (Colace) 100 mg PO DAILY [facility] Last Admin: 12/27/18 10:16 Dose: 100 mg Hydrocortisone (Hydrocortisone 2.5%) 1 applic TOP BID [facility] Last Admin: 12/27/18 10:17 Dose: 1 u Cefazolin Sodium 2 gm/ Sodium (Chloride) 100 mls @ 100 mls/hr IVPB Q8 [facility] Last Admin: 12/27/18 16:55 Dose: 100 mls/hr Loratadine (Claritin) 10 mg PO DAILY [facility] Last Admin: 12/27/18 10:16 Dose: 10 mg Morphine Sulfate (Morphine) 2 mg IVP Q4 PRN PRN Reason: Pain, severe (8-10) Ondansetron HCl (Zofran Inj) 4 mg IVP Q4 PRN PRN Reason: Nausea/Vomiting - Labs Labs: 12/27/18 12:30 12/27/18 12:30 PT 12.6 Seconds (9.8-13.1) 12/21/18 20:13 INR 1.1 12/21/18 20:13 APTT 37.8 Seconds (25.6-37.1) H 12/21/18 20:13 - Constitutional Appears: No Acute Distress - Head Exam Head Exam: ATRAUMATIC, NORMAL INSPECTION, NORMOCEPHALIC - Eye Exam Eye Exam: EOMI, Normal appearance, PERRL Pupil Exam: NORMAL ACCOMODATION, PERRL - ENT Exam ENT Exam: Mucous Membranes Moist, Normal Exam - Neck Exam Neck Exam: Full ROM, Normal Inspection. absent: Lymphadenopathy - Respiratory Exam Respiratory Exam: Clear to Ausculation Bilateral, NORMAL BREATHING PATTERN - Cardiovascular Exam Cardiovascular Exam: REGULAR RHYTHM, +S1, +S2. absent: Murmur - GI/Abdominal Exam GI & Abdominal Exam: Soft, Normal Bowel Sounds. absent: Tenderness - Rectal Exam Rectal Exam: Deferred - Extremities Exam Extremities Exam: Full ROM, Normal Capillary Refill, Normal Inspection. absent: Joint Swelling, Pedal Edema - Back Exam Back Exam: NORMAL INSPECTION - Neurological Exam Neurological Exam: Alert, Awake, CN II-XII Intact, Normal Gait, Oriented x3 - Psychiatric Exam Psychiatric exam: Normal Affect, Normal Mood - Skin Skin Exam: Dry, Intact, Normal Color, Warm Assessment and Plan (1) Abscess of forearm, right Status: Acute (2) Acute osteomyelitis Status: Acute - Assessment and Plan (Free Text) Assessment: cont IV Ancef for min 3 weeks with Ortho follow up
[2018-12-28] MEDS: ceFAZolin 2 GM in Sodium Chloride 0.9% 100 ML IVPB SCH ×3 (00:16→16:43)
[2018-12-28] MEDS: DiphenhydrAMINE 50 mg/ml Inj IVP PRN (01:19)
[2018-12-28] MEDS: Multivitamin With Minerals Tab PO SCH (08:23)
[2018-12-28] MEDS: carBAMazepine Chew Tab 100 MG Chew Tab PO SCH (08:23)
--- NOTE | 2018-12-28 09:09 | CP.PCM.PN ---
Subjective - Date & Time of Evaluation Date of Evaluation: 12/28/18 Time of Evaluation: 09:07 - Subjective Subjective: Patient sleeping, cooperates with dressing change with prompting. Denies pain in elbow Objective - Vital Signs/Intake and Output Vital Signs (last 24 hours): Temp Pulse Resp BP Pulse Ox 97.8 F 77 20 107/70 98 12/28/18 08:07 12/28/18 08:07 12/28/18 08:07 12/28/18 08:07 12/28/18 08:07 - Medications Medications: Current Medications Acetaminophen (Tylenol 325mg Tab) 650 mg PO Q4 PRN PRN Reason: Fever 101 degrees fahrenheit Carbamazepine (Tegretol) 100 mg PO DAILY [facility] Last Admin: 12/28/18 08:23 Dose: 100 mg Diphenhydramine HCl (Benadryl) 25 mg IVP Q4 PRN PRN Reason: Allergy symptoms Last Admin: 12/28/18 01:19 Dose: 25 mg Docusate Sodium (Colace) 100 mg PO DAILY [facility] Last Admin: 12/28/18 08:24 Dose: 100 mg Hydrocortisone (Hydrocortisone 2.5%) 1 applic TOP BID [facility] Last Admin: 12/28/18 08:24 Dose: 1 u Cefazolin Sodium 2 gm/ Sodium (Chloride) 100 mls @ 100 mls/hr IVPB Q8 [facility] Last Admin: 12/28/18 08:20 Dose: 100 mls/hr Loratadine (Claritin) 10 mg PO DAILY [facility] Last Admin: 12/28/18 08:24 Dose: 10 mg Multivitamins/Minerals (Therapeutic-M Tab) 1 tab PO DAILY [facility] Last Admin: 12/28/18 08:23 Dose: 1 tab Ondansetron HCl (Zofran Inj) 4 mg IVP Q4 PRN PRN Reason: Nausea/Vomiting - Labs Labs: 12/27/18 12:30 12/27/18 12:30 PT 12.6 Seconds (9.8-13.1) 12/21/18 20:13 INR 1.1 12/21/18 20:13 APTT 37.8 Seconds (25.6-37.1) H 12/21/18 20:13 - Extremities Exam Additional comments: dressing changed. Incision intact, dry, no erythema, healing well. Minimal tenderness. Elbow ROM stiff, encouraged. Sensation intact, +ROM fingers/wrist +radial plse Assessment and Plan (1) Abscess of forearm, right Assessment & Plan: POD#5 s/p I&D ortho stable for d/c f/u Dr. Cox 5-7 days upon d/c dressing change daily encourage ROM of elbow flex/ext/pron/sup d/w Dr. Cox, agrees with aboe Status: Acute
[2018-12-29] MEDS: ceFAZolin 2 GM in Sodium Chloride 0.9% 100 ML IVPB SCH ×2 (10:23→16:55)
[2018-12-29] MEDS: carBAMazepine Chew Tab 100 MG Chew Tab PO SCH (10:24)
[2018-12-29] MEDS: Multivitamin With Minerals Tab PO SCH (10:25)
--- NOTE | 2018-12-29 16:20 | CP.PCM.PN ---
Subjective - Date & Time of Evaluation Date of Evaluation: 12/29/18 Time of Evaluation: 15:00 - Subjective Subjective: Patient seen and examined at OOB to chair comfortable. No pain. Offers no new complaints. Awaiting disposition. Objective - Vital Signs/Intake and Output Vital Signs (last 24 hours): Temp Pulse Resp BP Pulse Ox 98.3 F 87 18 103/64 100 12/29/18 15:58 12/29/18 15:58 12/29/18 15:58 12/29/18 15:58 12/29/18 15:58 - Medications Medications: Current Medications Acetaminophen (Tylenol 325mg Tab) 650 mg PO Q4 PRN PRN Reason: Fever 101 degrees fahrenheit Carbamazepine (Tegretol) 100 mg PO DAILY [facility] Last Admin: 12/29/18 10:24 Dose: 100 mg Diphenhydramine HCl (Benadryl) 25 mg IVP Q4 PRN PRN Reason: Allergy symptoms Last Admin: 12/28/18 01:19 Dose: 25 mg Docusate Sodium (Colace) 100 mg PO DAILY [facility] Last Admin: 12/29/18 10:24 Dose: 100 mg Hydrocortisone (Hydrocortisone 2.5%) 1 applic TOP BID [facility] Last Admin: 12/29/18 10:24 Dose: 1 applic Cefazolin Sodium 2 gm/ Sodium (Chloride) 100 mls @ 100 mls/hr IVPB Q8 [facility] Last Admin: 12/29/18 10:23 Dose: 100 mls/hr Loratadine (Claritin) 10 mg PO DAILY [facility] Last Admin: 12/29/18 10:24 Dose: 10 mg Multivitamins/Minerals (Therapeutic-M Tab) 1 tab PO DAILY [facility] Last Admin: 12/29/18 10:25 Dose: 1 tab Ondansetron HCl (Zofran Inj) 4 mg IVP Q4 PRN PRN Reason: Nausea/Vomiting - Labs Labs: 12/27/18 12:30 12/27/18 12:30 PT 12.6 Seconds (9.8-13.1) 12/21/18 20:13 INR 1.1 12/21/18 20:13 APTT 37.8 Seconds (25.6-37.1) H 12/21/18 20:13 - Extremities Exam Additional comments: RUE: Dressings CDI Incsion CDI with nylon sutures antecubital non-tender indurated mass, postop changes sensation and motor intact MN/UN/RN radial pulse intact Assessment and Plan (1) Abscess of forearm, right Assessment & Plan: POD#5 S/P R elbow abscess I&D -awaiting dispo to rehab for oysterman IV abx -abx as per ID -OT ROM as barbara -orthopedically stable for discharge -f/u in office within 7-10 days -d/w Dr. Cox who agrees with above Status: Acute
--- NOTE | 2018-12-29 17:51 | CP.PCM.PN ---
Subjective - Date & Time of Evaluation Date of Evaluation: 12/29/18 Time of Evaluation: 08:00 - Subjective Subjective: doing well afeb nad Objective - Vital Signs/Intake and Output Vital Signs (last 24 hours): Temp Pulse Resp BP Pulse Ox 98.3 F 87 18 103/64 100 12/29/18 15:58 12/29/18 15:58 12/29/18 15:58 12/29/18 15:58 12/29/18 15:58 - Medications Medications: Current Medications Acetaminophen (Tylenol 325mg Tab) 650 mg PO Q4 PRN PRN Reason: Fever 101 degrees fahrenheit Carbamazepine (Tegretol) 100 mg PO DAILY [facility] Last Admin: 12/29/18 10:24 Dose: 100 mg Diphenhydramine HCl (Benadryl) 25 mg IVP Q4 PRN PRN Reason: Allergy symptoms Last Admin: 12/28/18 01:19 Dose: 25 mg Docusate Sodium (Colace) 100 mg PO DAILY [facility] Last Admin: 12/29/18 10:24 Dose: 100 mg Hydrocortisone (Hydrocortisone 2.5%) 1 applic TOP BID [facility] Last Admin: 12/29/18 16:55 Dose: Not Given Cefazolin Sodium 2 gm/ Sodium (Chloride) 100 mls @ 100 mls/hr IVPB Q8 [facility] Last Admin: 12/29/18 16:55 Dose: 100 mls/hr Loratadine (Claritin) 10 mg PO DAILY [facility] Last Admin: 12/29/18 10:24 Dose: 10 mg Multivitamins/Minerals (Therapeutic-M Tab) 1 tab PO DAILY [facility] Last Admin: 12/29/18 10:25 Dose: 1 tab Ondansetron HCl (Zofran Inj) 4 mg IVP Q4 PRN PRN Reason: Nausea/Vomiting - Labs Labs: 12/27/18 12:30 12/27/18 12:30 PT 12.6 Seconds (9.8-13.1) 12/21/18 20:13 INR 1.1 12/21/18 20:13 APTT 37.8 Seconds (25.6-37.1) H 12/21/18 20:13 - Constitutional Appears: Well, Non-toxic, Chronically Ill - Head Exam Head Exam: ATRAUMATIC, NORMAL INSPECTION, NORMOCEPHALIC - Eye Exam Eye Exam: EOMI, Normal appearance, PERRL Pupil Exam: NORMAL ACCOMODATION, PERRL - ENT Exam ENT Exam: Mucous Membranes Moist, Normal Exam - Neck Exam Neck Exam: Full ROM, Normal Inspection. absent: Lymphadenopathy - Respiratory Exam Respiratory Exam: Clear to Ausculation Bilateral, NORMAL BREATHING PATTERN - Cardiovascular Exam Cardiovascular Exam: REGULAR RHYTHM, +S1, +S2. absent: Murmur - GI/Abdominal Exam GI & Abdominal Exam: Soft, Normal Bowel Sounds. absent: Tenderness - Rectal Exam Rectal Exam: Deferred - Exam Exam: NORMAL INSPECTION - Extremities Exam Extremities Exam: Full ROM, Normal Capillary Refill, Normal Inspection. absent: Joint Swelling, Pedal Edema - Back Exam Back Exam: NORMAL INSPECTION - Neurological Exam Neurological Exam: Alert, Awake, CN II-XII Intact, Normal Gait, Oriented x3 - Psychiatric Exam Psychiatric exam: Normal Affect, Normal Mood - Skin Skin Exam: Dry, Intact, Normal Color, Warm Assessment and Plan (1) Abscess of forearm, right Status: Acute (2) Acute osteomyelitis Status: Acute - Assessment and Plan (Free Text) Assessment: cont iv antibiotics as ordered
[2018-12-30] MEDS: ceFAZolin 2 GM in Sodium Chloride 0.9% 100 ML IVPB SCH ×2 (00:18→08:57)
[2018-12-30 08:13] VITALS: BP 135/71; PULSE 66; RESP 20; TEMP 97.8; O2SAT 96
[2018-12-30] MEDS: Multivitamin With Minerals Tab PO SCH (08:58)
[2018-12-30] MEDS: carBAMazepine Chew Tab 100 MG Chew Tab PO SCH (08:58)
--- NOTE | 2019-01-06 01:21 | CP.PCM.PN ---
Subjective - Date & Time of Evaluation Date of Evaluation: 12/29/18 Time of Evaluation: 10:00 - Subjective Subjective: Pt seen and assessed at bedside, offers no new complaints. Pending ROSA placement. Dressing changes done regularly to affected extremity. Continue IV antibiotics. Subjective Review of Systems: Reviewed and no additional remarkable complaints except intermittent pain to the right elbow crease. Objective Appears: Anxious, Non-toxic, No Acute Distress. Head Exam: NORMAL INSPECTION, normocephalic. Eye Exam: Normal eye inspection, EOMI, PERRLA. Respiratory Exam: NORMAL BREATHING PATTERN, breath sounds clear bilaterally. Cardiovascular Exam: +S1, +S2. RRR. GI & Abdominal Exam: Soft, non-tender, non-distended. Neurological Exam: Alert, Awake, Oriented x3. Psychiatric exam: Normal mood. Calm and cooperative. Skin Exam: Right arm dressing in place. Assessment/Impression/Plan: 1.) Cellulitis/Right upper arm abscess -Pending ROSA placement. -Pt will need middle or intermediate [employer] principal antibiotics. -Switched to Ancef due to potential PCN allergy. -Infectious disease and orthopedic consults input appreciated. -Wound care and dressing changes regularly. -Monitor for s/s infection. -Continue current treatment. Objective - Vital Signs/Intake and Output Vital Signs (last 24 hours): Temp Pulse Resp BP Pulse Ox 97.8 F 66 20 135/71 96 12/30/18 09:00 12/30/18 09:00 12/30/18 09:00 12/30/18 09:00 12/30/18 09:00 - Labs Labs: 12/27/18 12:30 12/27/18 12:30 PT 12.6 Seconds (9.8-13.1) 12/21/18 20:13 INR 1.1 12/21/18 20:13 APTT 37.8 Seconds (25.6-37.1) H 12/21/18 20:13 Assessment and Plan (1) Abscess of forearm, right Status: Acute (2) Cellulitis and abscess of upper arm and forearm Status: Acute (3) Allergic reaction Status: Acute (4) Allergic reaction caused by a drug Status: Acute
--- NOTE | 2019-01-06 10:53 | CP.PCM.PCO ---
Physician Clarification of Debridement Procedure Date: 12/23/2018 Surgeon: Kenny Moura Veterinarian: Christianne Suh Procedure: Incision and Drainage Forearm Debridement Clarification: Excisional Debridement of 4- 5cm wound using forceps, scalpel to remove skin to fascia tissue. PETE
== END 2018-12-30 15:14 | DRG 564 ==
LOC: H.ER 15:19 → H.ERHOLD 16:08 → H.MEDSURG1 21:16
PROVIDERS: ADMIT Family Medicine; ATTEND Family Medicine
PROC: 0J8 Subcutaneous Tissue and Fascia, Division (ICD-10-PCS; 2018-12-23)
PROC: 0JBG0ZZ Excision of Right Lower Arm Subcutaneous Tissue and Fascia, Open Approach (ICD-10-PCS; 2018-12-23)
PROC: 3E0T3BZ Introduction of Anesthetic Agent into Peripheral Nerves and Plexi, Percutaneous Approach (ICD-10-PCS; principal; 2018-12-23 07:45)
PROC: 0H9DXZZ Drainage of Right Lower Arm Skin, External Approach (ICD-10-PCS; 2018-12-23 07:45)
PROC: 02HV33Z Insertion of Infusion Device into Superior Vena Cava, Percutaneous Approach (ICD-10-PCS; 2018-12-24)
DX: L02.413 Cutaneous abscess of right upper limb (principal); M86.18 Other acute osteomyelitis, other site; R56.9 Unspecified convulsions; L30.9 Dermatitis, unspecified; L03.113 Cellulitis of right upper limb; B95.61 Methicillin susceptible Staphylococcus aureus infection as the cause of diseases classified elsewhere; Z91.010 Allergy to peanuts; Z88.0 Allergy status to penicillin; Z91.013 Allergy to seafood; L50.0 Allergic urticaria; T36.0X5A Adverse effect of penicillins, initial encounter; R41.89 Other symptoms and signs involving cognitive functions and awareness